=== PATIENT | female | born 1955 | race Caucasian/White ===

== ENCOUNTER → 2019-01-24 06:49 | Outpatient (CLI) | payer MEDICARE, SELFPAY ==
[2019-01-05 08:23] VITALS: BMI 37.3
--- NOTE | 2019-01-24 12:21 | STRESSREP_ITS ---
Stress Test Report Exercise myocardial perfusion stress test. 63-year-old lady with a history of hypertension, hyperlipidemia, coronary artery disease status post angioplasty and stenting of the right coronary artery and left anterior descending artery in 2007. Stress protocol: Resting EKG demonstrates sinus bradycardia with a rate of 58 bpm normal interv als are noted resting blood pressures 128/88 mmHg. Patient exercised according to regular Kwadwo protocol for total duration of 4 minutes and 12 seconds the maximum heart rate attained was 146 bpm which was 92% of maximum predicted heart rate the maximum workload was 6 metabolic equivalents. At rest there were no ST or T wave changes noted suggest ischemia peak exercise upsloping ST changes were noted with no meet the criteria for ischemia. No clinical angina was noted the test was terminated due to dyspnea and target heart rate being achieved. Resting blood pressure was 124/88 with a peak blood pressure 160/70 mmHg. Myocardial perfusion protocol. 12.0 mCi of technetium 99m sestamibi was injected at rest. The patient exercised according to regular Kwadwo protocol after 4 minutes and 12 seconds at peak exercise 36.0 mCi of technetium 99m sestamibi was injected stress images were obtained stress and rest images were reconstructed and compared in the short axis vertical long horizontal long axis. Gated images were also obtained per Perfusion SPECT analysis: Review of the stress images demonstrate reduction of perfusion in the basal to mid inferior wall on the stress and mild improvement in the mid inferior wall on the resting images suggesting a mild amount of mid inferior ischemia. The other barnett appear to be well perfused. No previous infarct is noted though a basal inferior infarct cannot be completely excluded. Gated SPECT analysis: The gated ejection fraction is noted to be 74%. Conclusion: Exercise myocardial perfusion stress test at a low to moderate workload with evidence of mid inferior ischemia noted.
== END ==
PROVIDERS: Family Provider Internal Medicine; PCP Internal Medicine; Referring Provider Internal Medicine Cardiovascular Disease; Visit Provider Internal Medicine Cardiovascular Disease
DX: I25.10 Atherosclerotic heart disease of native coronary artery without angina pectoris (principal); Z95.5 Presence of coronary angioplasty implant and graft
CPT/HCPCS: 78452; 93017; A9500; A4216

== ENCOUNTER 2019-01-31 07:28 | Day surgery (SDC) | payer MEDICARE, SELFPAY ==
[2019-01-05 08:23] VITALS: BMI 37.3
--- NOTE | 2019-01-25 11:10 | RAD_ITS ---
STUDY: X-RAY CHEST REASON FOR EXAM: Female, 63 years old. Pain. TECHNIQUE: PA and lateral views of the chest. COMPARISON: 05/12/2008. FINDINGS: The lungs are clear and expanded. There is no demonstrated pleural abnormality. Normal size heart. Normal mediastinum and frannie. Normal visualized pulmonary arteries. Normal visualized aortic arch and descending thoracic aorta. There are diffuse degenerative changes of the visualized thoracic spine. There is degenerative osteoarthritis of the bilateral shoulders. There is no demonstrated abnormality of the visualized soft tissue structures of the upper abdomen. RAD/Chest PA and Lateral IMPRESSION: No acute cardiopulmonary disease. Electronically Signed: Lizette Wills MD at 1:26 EST , Service support ,
[2019-01-28 07:45] VITALS: BMI 37.3
[2019-01-31] VITALS (22 sets, daily range): BP systolic 121–182; BP diastolic 47–129; PULSE 48–75; RESP 12–21; TEMP 36.4–37.2; O2SAT 96–100; BMI 36.7; BMI 36.2
--- NOTE | 2019-01-31 10:09 | CL.D_ITS ---
Patient Name: CHRISTIN ROB Study Date: 01/31/2019 Performing: Thomas Washington MD Ht: 61.81 inches 157 cm : 1955 Wt: 205.03 lbs 93 kg Age: 63 Gender: female BSA: 1.93 PROCEDURE(S) PERFORMED TS84-BPC/COR/LV CLINICAL PROFILE AND INDICATIONS Indications: Suspected CAD Heart Failure: None Stress/Imaging Date: 01/24/2019Stress Test with SPECT MPI: Positive Intermediate Risk CONCLUSIONS Previously placed stent in the left anterior descending arteries patent, left circumflex artery mild stenosis, previously placed stents in the right coronary artery demonstrates at least moderate in-karina nt stenosis. In light of the fact that the patient had abnormal stress test with inferior ischemia a t a low to moderate workload it is felt that this may be an underestimate of the stenosis and will re commend PCI RECOMMENDATIONS Referred for immediate PCI DESCRIPTION OF PROCEDURE The patient arrived to the procedure lab. The risks and benefits of the procedure as well as a full d escription of our services here and current unavailability of surgical backup were fully explained to the patient and/or their significant other prior to the catheterization. The Timeout was completed, verifying the correct patient and procedure. The patient's procedural site was prepped and draped in the usual fashion. Local anesthetic was given subcutaneously to right radial region with Lidocaine 2% . Using a modified Seldinger technique, arterial access was obtained via the right radial artery, a 6 Fr sheath was inserted. Right Coronary Artery selective angiography was then performed in multiple v iews using a 5 Fr. 3DRC (Kaden) catheter. Left Coronary Artery selective angiography was performed in multiple views using a 5 Fr. JL4 catheter. CORONARY ANGIOGRAPHY DOMINANCE: Right Dominant LEFT HEART ASSESSMENT Left Ventricular Ejection Fraction: by LV Gram 55 % Diaphragmatic Akinesis Normal Left Ventricular systolic function LEFT MAIN: Angiographically normal LEFT ANTERIOR DESCENDING ARTERY: Previously placed stent is patent CIRCUMFLEX ARTERY: Mild luminal irregularities less than 30% RAMUS: Mild luminal irregularities less than 30% RIGHT CORONARY ARTERY: PROX RCA: Instent restenosis 70 % MID RCA: Mild luminal irregularities less than 30%, Previously placed stent has an instent 60 % reste nosis COMPLICATIONS PROCEDURE MEDICATIONS Versed 1 mg IV Fentanyl 50 mcg IV Oxygen: 2 L/min via nasal cannula Baby Aspirin (81mg) 1 Tabs PO @ 01/31/2019 08:09:31 SUMMARY OF HEMODYNAMIC DATA Time AIR REST ECG 07:50:49 AO 97/61 (77) SA 09:49:35 LV 131/-6, -1 09:55:10 LV 131/-7, 0 09:55:17 Signed By Thomas Washington MD On 01/31/2019 10:08:40 Thomas Washington MD
--- NOTE | 2019-01-31 11:15 | NURSING ---
01/31/19 1115 Patient arrived to ICU, edema present in right arm. Patient c/o tenderness and tightness feeling. Per optical laboratory technician staff, Dr. Boyce visualized the patients arm prior to ICU arrival. Right forearm measured in able to monitor for anymore swelling. No bruises noted. Brachial and radial pulses palpable. 01/31/19 1215- Patients right arm reassessed every 5 minutes with wrist check, remains unchanged. 01/31/19 1320- Dr. Boyce notified that right arm remains unchanged, swelling noted, no bruises and pulses palpable. Patient continues to c/o tenderness. No further orders given.
--- NOTE | 2019-01-31 11:15 | EKG12_ITS ---
Test Reason : Blood Pressure : / mmHG Vent. Rate : 047 BPM Atrial Rate : 047 BPM P-R Int : 178 ms QRS Dur : 072 ms QT Int : 458 ms P-R-T Axes : 049 015 028 degrees QTc Int : 405 ms Marked sinus bradycardia Septal infarct (cited on or before 19-AUG-2004) Abnormal ECG When compared with ECG of 17-FEB-2008 13:56, Criteria for Inferior infarct are no longer Present Nonspecific T wave abnormality now evident in Lateral leads Confirmed by EARLENE DODSON, THOMAS ([id number]), assignment desk editor ROLY QUIÑONES ([id number]) on 02/01/2019 9:50:47 AM Referred By: Thoams Henao Confirmed By:THOMAS HENAO MD
[2019-01-31] MEDS: 0.9% Normal Saline 1,000 ML 100 ML IV (11:57)
--- NOTE | 2019-01-31 13:20 | CRPH1.INSTRU ---
General Education CAD and cardiac anatomy and function:: Patient communicates acknowledgment Explanation of diagnoses and procedures:: Patient communicates acknowledgment Sign/Symptoms of DE:: Patient communicates acknowledgment Antiplatelet therapy: Patient communicates acknowledgment Proper use of NTG-SL: Patient communicates acknowledgment Emergency procedures and activation of EMS: Patient communicates acknowledgment Compliance of all prescribed medications: Patient communicates acknowledgment Smoking Patient Nicotine/Smoking Risk Factors Are:: Cigarettes Recommendations Include:: Smoking cessation strategies/Smoking packet, Participation in a smoking cessation program Nicotine/Smoking Response Code:: Patient communicates acknowledgment Dyslipidemia Patient Dyslipidemia Risk Factors Are:: Total Cholesterol, Triglycerides, HDL, LDL Recommendations Include:: Lipid profile not available Dyslipidemia Response Code:: Patient communicates acknowledgment Overweight/Obesity Patient Overweight/Obesity Risk Factors Are:: Obesity - > or = 30 Recommendations Include:: Weight loss of 5-10%, Reduced calorie diet, Exercise 5-7 times/week Overweight/Obesity:: Patient communicates acknowledgment Hypertension Recommendations Include:: Maintain BP <130/85, BP <130/80 if diabetic, DASH dietary guidelines, Decrease/maintain normal body weight, Moderation of ETOH Hypertension:: Patient communicates acknowledgment Heart Disease Patient Heart Disease Risk Factors Are:: Previous cardiac event - Previous stents Recommendations Include:: Educated family members of their risk, Educated family members of importance of prevention of heart disease Heart Disease Response Code:: Patient communicates acknowledgment Diabetes Patient Diabetes Risk Factors Are:: Elevated blood sugars Recommendations Include:: Maintain fasting blood sugars 70-110 md/dL, Maintain HgbA1c of 6% or less, Monitor blood sugar as prescribed, Diabetic dietary guidelines, Decrease/maintain body weight Diabetes:: Patient communicates acknowledgment Metabolic Syndrome Patient Metabolic Syndrome Risk Factors Are [3 of 5]:: Waist circumference > 35 [female] or 40 [male], Hypertension Recommendations Include:: Reinforce compliance to risk factor modifications, Patient is diabetic, Encouraged follow-up with Primary Care Physician Metabolic Syndrome Response Code:: Patient communicates acknowledgment Sedentary Patient Sedentary Risk Factors Are:: Lack of regular exercise Recommendations Include:: Aerobic exercise 5-7 times/week for 20-30 minutes continuously, Benefits of regular exercise, Discussed home walking program, Monitored Outpatient Cardiac Rehab Sedentary Response Code:: Patient communicates acknowledgment Stress Recommendations Include:: Identification of stressors, and assessment of coping skills, Stress management techniques Stress Response Code:: Patient communicates acknowledgment
--- NOTE | 2019-01-31 13:25 | CRPHASE1 ---
Patient Communication Former Patient:: Phase II - 2007 PHII Cardiac Rehab Discussed with Patient:: Yes Guide to Cardiac Rehab Given to Patient:: Yes Cardiac Rehab Facility Choice List Given to Patient:: Yes Choice Program [facility] PHII:: Communication Given to CR, Refer to [facility] Intermediate Manager:: Rudy Boyce Phase II Cardiac Rehab:: Yes Sessions:: 36 sessions - 3 days/wk, 12 weeks Risk Factors/Lifestyle Smoking Status: Current every day smoker Hx Hypertension: Yes Hx Diabetes Mellitus Type 2: Yes Hx Dyslipidemia: Yes Hx Obesity: Yes Height: 5 ft 3 in Weight:: 92.87 kg BMI: 36.2 Post-Menopausal: Yes Stress: Long-standing, Home/Family Family History: Family History (Last Reviewed 01/05/19 @ 11:33 by Thomas Washington MD) Father Cancer Past Cardiac Illness: Ejection Fraction - 55%, Coronary Artery Disease, Previous PCI w/Stent Phase I Education Given On:: [place], Nutrition, Antiplatelet medication, CHF, Smoking cessation, Diabetes - Type II Issues Affecting Care:: None Knowledge of Condition:: Yes Learning Preferences: Verbal Hospital Course Presenting Symptoms:: Abnormal Stress Test Date/LVF/EF:: 01/31/19 - EF 55% Intervention:: PCI/Stent Medical/Surgical History CAD:: Yes Asthma:: Yes Diabetes Type II:: Yes Hypertension:: Yes Dyslipidemia:: Yes GERD:: Yes Depression:: Yes Anxiety:: Yes PTCA:: Yes Discharge/Home/Social Eval Discharge Disposition: Home Marital Status: Patient Lives With:: Raising 11 yr old grandson Cardiac Rehabilitation Info Cardiac Rehabilitation Program Information: Cardiac Rehabilitation is important for patients like you who are recovering from a heart problem. Cardiac rehabilitation programs are recognized as integral to the continued care of the patient with coronary heart disease. The cardiac rehabilitation program is designed to optimize a patient's physical, psychological, and social functioning. Health health care recruiter work in cardiac rehabilitation programs and assist you with getting the treatments you need to get stronger and healthier - like exercise, healthy eating habits, and medications. Cardiac rehabilitation has been show to help people with heart problems live longer and have better life enjoyment than people who do not go to cardiac rehabilitation. Please contact the Cardiac Rehabilitation Program at [facility] at in two weeks if you have not heard from them.
--- NOTE | 2019-01-31 14:39 | CASEMGMT ---
Addendum entered by Yolette Alaniz 01/31/19 16:05: Went to patient bedside, introduced self and role. Provided a Brilinta card. Patient plan for DC Home with and granddaughter who can help if needed. PEGGY Montoya Original Note: Case Management Progress Note: In [facility] Tertiary Hospitals: [facility], [facility], [facility], , [facility], [facility], [facility]. PEGGY Montoya
--- NOTE | 2019-01-31 16:40 | NURSING ---
Dr. Boyce came to visit patient and assess the right arm. MD confirmed a hematoma is present, however stable. Continue to monitor.
[2019-01-31 17:45] LABS: Bedside Glucose 101 mg/dL (70-110)
[2019-01-31] MEDS: Atorvastatin Calcium 80 MG Tablet PO (21:36)
[2019-01-31] MEDS: TICAGRELOR 90 MG TABLET PO (21:36)
[2019-01-31] MEDS: Montelukast 10 MG Tablet PO (21:36)
[2019-02-01] VITALS (16 sets, daily range): BP systolic 120–152; BP diastolic 50–81; PULSE 56–80; RESP 14–25; TEMP 36.7–37.3; O2SAT 96–100
[2019-02-01 05:52] LABS: Hematocrit 36.7 % (37-47); Hemoglobin 12.3 g/dL (12.0-15.0); Mean Corp Hgb Conc 33.5 g/dL (32-36); Mean Corpuscular Hgb 29.2 pg (27.0-32.0); Mean Corpuscular Volume 87.2 fL (81-99); Mean Platelet Vol. 9.4 fl (6.2-12.0); Platelet Count 187 K/mm3 (150-450); RBC Distribution Width CV 13.2 % (11.6-14.6); RBC Distribution Width SD 40.7 fl (35.1-43.9); Red Blood Count 4.21 M/mm3 (4.2-5.4); White Blood Count 8.7 K/mm3 (4.4-11.0)
[2019-02-01 06:10] LABS: ALB/GLOB Ratio 0.9 RATIO (0.9-2.4); AST(SGOT) 15 U/L (15-37); Alanine Aminotransfer ALT/SGPT 18 U/L (13-56); Albumin, Serum 3.2 g/dL (3.2-5.0); Alkaline Phosphatase 86 U/L (45-117); Anion Gap 6 (5-15); BUN 14 mg/dL (7-18); BUN/Creat Ratio 10.4 RATIO (10-20); Calcium,Total 8.7 mg/dL (8.5-10.1); Chloride 111 mmol/L (98-107); Creatinine, Serum 1.34 mg/dL (0.55-1.02); EST Glomerular Filtration Rate 42 mL/min (>60); Est Glom Filt Rate - Afr Amer 51 mL/min (>60); Estimated Creatinine Clearance 35.55 ml/min; Globulin 3.5 g/dL (2.2-4.2); Glucose 166 mg/dL (74-106); Potassium 3.5 mmol/L (3.5-5.1); Protein, Total 6.7 g/dL (6.4-8.2); Sodium Level 140 mmol/L (136-145)
[2019-02-01] MEDS: Aspirin 81 MG TAB.CHEW PO (07:56)
[2019-02-01] MEDS: Pantoprazole Sodium 20 MG Tablet PO (07:56)
[2019-02-01] MEDS: Loratadine 10 MG Tablet PO (07:57)
[2019-02-01] MEDS: Atenolol 50 MG Tablet PO (07:57)
[2019-02-01] MEDS: Glimepiride 4 MG Tablet PO (07:57)
[2019-02-01] MEDS: Lisinopril 20 MG Tablet PO (07:57)
[2019-02-01] MEDS: TICAGRELOR 90 MG TABLET PO (07:58)
--- NOTE | 2019-02-01 08:07 | PCM.PN.CARD ---
Subjectve: Patient seen and evaluated and appears to be doing well Objective: Vital Signs Temp Pulse Resp BP Pulse Ox 99.1 F 63 18 138/63 H 96 02/01/19 06:00 02/01/19 07:32 02/01/19 07:32 02/01/19 07:32 02/01/19 07:32 Oxygen Delivery Method Room Air Weight: 202 lb 6.15 oz Body Mass Index (BMI) 36.7 Intake and Output for Last 24 Hours 01/30/19 01/31/19 02/01/19 23:59 23:59 23:59 Intake Total 525 / 525 Balance 525 / 525 General: Awake, Alert, Oriented x 3 HEENT: PERRL, EOMI, Sclera Non Icteric Neck: Supple, Good ROM, No Lymph Node Enlargement Lungs: Clear to auscultation Cardiovascular: Regular Rhythm, Normal S1, Normal S2, No Murmurs, No Rubs, No Gallops Vascular: No Carotid Bruits, Normal Femoral Pulses, Normal Radial Pulses, Normal Dorsalis Pedal Pulse, Normal Posterior Tibial Pulses Abdomen: Bowel Sounds Present, Soft, Non Tender, No HSM, No Organomegaly Extremities: No Cyanosis, No Clubbing, No edema Musculoskeletal: No Erythema Skin: No Rashes Lymphatic: No Lymph Node Enlargement Neurological: No Focal Motor or Sensory Deficit Psych/Mental Status: Appropriate 02/01/19 05:30: WBC 8.7, RBC 4.21, Hgb 12.3, Hct 36.7 L, MCV 87.2, MCH 29.2, MCHC 33.5, Plt Count 187, MPV 9.4 02/01/19 05:30: Sodium 140, Potassium 3.5, Chloride 111 H, Carbon Dioxide 23.0, Anion Gap 6, BUN 14, Creatinine 1.34 H, Est GFR (MDRD) Af Amer 51 L, Est GFR (MDRD) Non-Af 42 L, BUN/Creatinine Ratio 10.4, Glucose 166 H, Calcium 8.7, Total Bilirubin 0.70 Rhythm: EKG: ECHO: Stress Test: Cardiac Cath: PCI: CT Surgery: Holter monitor: EPS: PPM: CXR: Chest CT Scan: Medical Necessity - Tobacco Use Smoking Status: Current every day smoker Tobacco Use: Cigarettes Assessment/Plan 1. Status post PCI of the right coronary artery. Patient appears to doing well EKG is without any abnormality and radial site looks good. The patient to be discharged for outpatient follow-up and cardiac rehabilitation. Continue aspirin Continue ticagrelor Continue atenolol Continue statin Continue lisinopril.
--- NOTE | 2019-02-01 09:53 | CASEMGMT ---
RN CM Note: Intro role of CM to patient. Brilinta savings card reviewed. Pt would like medications filled @ [facility]. Card sent to [facility]. No dc needs identified. Vita HICKSN RN ACM
--- NOTE | 2019-02-01 10:00 | EKG12_ITS ---
Test Reason : AM EKG Blood Pressure : / mmHG Vent. Rate : 075 BPM Atrial Rate : 075 BPM P-R Int : 168 ms QRS Dur : 080 ms QT Int : 464 ms P-R-T Axes : 046 009 029 degrees QTc Int : 518 ms Normal sinus rhythm Septal infarct , age undetermined Prolonged QT Abnormal ECG When compared with ECG of 31-JAN-2019 11:20, MANUAL COMPARISON REQUIRED, DATA IS UNCONFIRMED Confirmed by DAMON DODSON, NAHEED ([id number]), multimedia editor CARLY KRUEGER ([id number]) on 02/04/2019 10:40:40 AM Referred By: Thomas Washington Confirmed By:VICTORINO JOSE MD
--- NOTE | 2019-02-01 11:10 | PCM.DC.CCA ---
Discharge Diet: Low fat/ Low Cholesterol Discharge Activity: Return to Normal Activity Lifting Restrictions: 10 pounds and also avoid any pushing or pulling for 3 days after your test. Call your doctor if your incision/area has: Continuous Slow Oozing, Sudden Increased Bleeding, Increased Pain/ Swelling, Increased Redness, Foul Smelling Discharge, Swelling at the incision site Call your doctor if you observe: Fever of 101 or Higher, Shortness of breath, Chest pain Remove Dressing in (days):: 1 Cleanse incision/area with: Soap & Water Additional Dressing/Incision Instructions:: Keep the dressing (bandage) on until the next morning. You may then shower, but do not take a tub bath for 5 days after your test. Where your arm will be soaking on water. It is normal to have some tenderness and discomfort at the puncture site. Sometimes bruising also occurs. However, if pain, numbness, or coldness occurs below the puncture site (in your leg, toes, arms or fingers) call your doctor at once. You may have a small, marble sized knot at the puncture site. This is normal. Do not rub it. It will go away in 4-6 weeks. Bleeding can occur from the area where the puncture was done. Blood may spurt or drip from the site. If blood spurts, apply pressure right away to stop bleeding and call 911. Although rare, bleeding into the tissue (hematoma) can also occur. If this happens, a large, firm area goose egg under the skin will appear. If any of these occur, lie down as flat as you can and have someone apply firm pressure to the cath site with a gauze pad or a clean washcloth for 10-15 minutes. Call 911 or go to the Emergency Department. Additional Instructions: I sent your Brilinta downstairs to be refilled. Please do no discontinue this for any reason. As discussed, call the number on the Brilinta card to see if you can have patient assistance with this medication. Let us know if you can not, when you have your follow up appt we can talk about switching medication. Allergies/Adverse Reactions: Allergies No Known Allergies Allergy (Verified 01/28/19 07:47) Medications to take at Discharge Aspirin 81 mg PO DAILY 04/14/16 Atenolol [Tenormin (beta jerman)] 50 mg PO QHS 04/14/16 albuterol sulfate 2.5 mg INHALATION Q4H PRN 12/02/18 alprazolam 0.25 mg tablet 0.25 mg PO DAILY PRN 12/02/18 cetirizine 10 mg tablet 10 mg PO DAILY tab 12/02/18 glimepiride 4 mg tablet 4 mg PO QAM 12/02/18 lisinopril 20 mg tablet 20 mg PO QHS 12/02/18 metformin 500 mg tablet,extended release 24 hr 1,000 mg PO QAM tab 12/02/18 metformin 500 mg tablet,extended release 24 hr 1,000 mg PO QPM 12/02/18 montelukast 10 mg tablet 10 mg PO QPM 12/02/18 nitroglycerin 0.4 mg sublingual tablet 0.4 mg SUBLINGUAL Q5-15M PRN 12/02/18 rosuvastatin 40 mg tablet 40 mg PO DAILY 12/02/18 omeprazole 20 mg capsule,delayed release 20 mg PO DAILY 01/05/19 ticagrelor 90 mg tablet 90 mg PO BID #60 tab 02/01/19 Orders to be completed after discharge: Phase II, Outpatient Cardiac Rehab Location: None Selected Primary Care Physician: Clotilde Dias MD [Primary Care Provider] - Test Results: Test results from this visit will be discussed in further detail at your follow-up appointment, if applicable. Please Follow Up With: Paty Figueroa PA When: 02/22 at 1430 Cardiac Rehabilitation Info Cardiac Rehabilitation Program Information: Cardiac Rehabilitation is important for patients like you who are recovering from a heart problem. Cardiac rehabilitation programs are recognized as integral to the continued care of the patient with coronary heart disease. The cardiac rehabilitation program is designed to optimize a patient's physical, psychological, and social functioning. Health field care advocate work in cardiac rehabilitation programs and assist you with getting the treatments you need to get stronger and healthier - like exercise, healthy eating habits, and medications. Cardiac rehabilitation has been show to help people with heart problems live longer and have better life enjoyment than people who do not go to cardiac rehabilitation. Please contact the Cardiac Rehabilitation Program at [facility] at in two weeks if you have not heard from them.
--- NOTE | 2019-02-01 12:09 | NURSING ---
discharged with instructions per wheelchair in care of
--- NOTE | 2019-02-02 04:31 | CL.I_ITS ---
Patient Name: CHRISTIN ROB Study Date: 01/31/2019 Performing: Jm Boyce MD Ht: 61.81 inches 157 cm : 1955 Wt: 205.03 lbs 93 kg Age: 63 Gender: female BSA: 1.93 PROCEDURE(S) PERFORMED [id number] W OR WO PTCA, SINGLE CORONARY ARTERY CLINICAL PROFILE AND CO-MORBIDITIES Indications: Suspected CAD Heart Failure: None Stress/Imaging Date: 01/24/2019 Stress Test with SPECT MPI: Positive Intermediate Risk CONCLUSIONS Successful KAITLYNN to ISR of mid RCA RECOMMENDATIONS ASA Indefinitley Bryeimita for at least 12 months Follow up with Dr. Washington DESCRIPTION OF PROCEDURE The patient arrived to the procedure lab. The risks and benefits of the procedure as well as a full d escription of our services here and current unavailability of surgical backup were fully explained to the patient and/or their significant other prior to the catheterization. The Timeout was completed, verifying the correct patient and procedure. The patient's procedural site was prepped and draped in the usual fashion. Local anesthetic was given subcutaneously to right radial region with Lidocaine 2% Using a modified Seldinger technique,arterial access was obtained via the right radial artery, a 6Fr sheath was inserted. Right Coronary Artery selective angiography was then performed in multiple view s using a 5 Fr. 3DRC (Kaden) catheter. Left Coronary Artery selective angiography was performed in multiple views using a 5 Fr. JL4 catheter. Left Ventriculography was performed in [place] projection usi ng a 5 Fr. Pigtail catheter. LV to AO pullback pressures were then recorded.The images were reviewed and options discussed. A decision was then made to proceed with an Intervention, IVUS o r other adjunct procedure. jr 4 Guide catheter was inserted and engaged into the RCA. bmw Guide wire was advanced to the RCA . 1.5 x 12 Balloon catheter was advanced across lesion in RV marginal off the right coronary, ostial . PTCA balloon inflated at 8 atms for 29 secs. PTCA balloon inflated at 8 atms for 7 secs. PTCA ballo on inflated at 12 atms for 20 secs. PTCA balloon inflated at 14 atms for 5 secs. PTCA balloon inflate d at 14 atms for 11 secs. PTCA balloon inflated at 14 atms for 11 secs. emerge 2.5 x [address] was advanced across lesion in the right coronary, mid. PTCA balloon inflated at 8 atms for 9 secs . PTCA balloon inflated at 10 atms for 10 secs. PTCA balloon inflated at 8 atms for 9 secs. PTCA ball oon inflated at 12 atms for 21 secs. PTCA balloon inflated at 14 atms for 39 secs. PTCA balloon infla jackie at 12 atms for 12 secs. Angiogram performed post balloon dilatation. synergy 2.5 x 24 Drug Elutin g stent was advanced across the lesion in the right coronary, mid. Angiogram performed post stent deployment. synergy 2.5 x 28 Drug Eluting stent was advanced across the lesion in the righ t coronary, mid. Angiogram performed post stent deployment. nc emerge 2.5 x 15 Balloon catheter was i nserted post stent. Angiogram performed post balloon dilatation. The arterial sheath was pulled and a TR Band was applied for hemostasis INTERVENTION INFORMATION LESION SITE: RV Marginal (Ostial) Lesion Complexity: High/C, chronic total occlusion: No, lesion at bifurcation: Yes, lesion length: 4 mm, thrombus present: No, culprit lesion: Yes, Previously treated lesion: No Pre Stenosis: 90 % Pre intervention DOT flow: 3 PROCEDURE: Balloon Angioplasty Post Stenosis: 70 % Post intervention DOT flow: 3 Lesion Devices: Baker .014 BMW Silver Straight 190cm Cardinal 6 Fr JR4 100cm Guide Catheter Medtronic SC EUPHORA RX 1.5x12 BALLOON LESION SITE: RCA (Mid) Lesion Complexity: High/C, chronic total occlusion: No, lesion at bifurcation: Yes, thrombus present: No, lesion length: 40 mm, culprit lesion: Yes, Previously treated lesion: Yes, In-stent restenosis: Yes Pre Stenosis: 80 % Pre intervention DOT flow: 3 PROCEDURE: Drug Eluting Stent with pre and post dilatation Post Stenosis: 0 % Post intervention DOT flow: 3 Lesion Devices: Baker .014 BMW Silver Straight 190cm Cardinal 6 Fr JR4 100cm Guide Catheter Medtronic SC EUPHORA RX 1.5x12 BALLOON Burt [employer] Synergy MR KAITLYNN 2.50x24 Burt Sci Synergy MR KAITLYNN 2.50x28 Burt Sci NC EMERGE MR 2.50x15 BALLOON COMPLICATIONS No Complications PROCEDURE MEDICATIONS Versed 1 mg IV Fentanyl 50 mcg IV Oxygen: 2 L/min via nasal cannula Baby Aspirin (81mg) 1 Tabs PO 01/31/2019 08:09:31 Brilinta 180 mg PO @ 01/31/2019 11:01:29 Heparin 5000 unit(s) IV 01/31/2019 10:10:55 SUMMARY OF HEMODYNAMIC DATA Time AIR REST ECG 07:50:49 AO 97/61 (77) SA 09:49:35 LV 131/-6, -1 09:55:10 LV 131/-7, 0 09:55:17 Signed By Jm Boyce MD On 02/02/2019 04:31:12 Jm Boyce MD
== END 2019-02-01 11:30 | disposition home or self-care (01) ==
LOC: CLSP 07:28 → ICU 11:27
PROVIDERS: Specialist; Family Provider Internal Medicine; PCP Internal Medicine; Referring Provider Internal Medicine Cardiovascular Disease; Visit Provider Internal Medicine Cardiovascular Disease
DX: I25.10 Atherosclerotic heart disease of native coronary artery without angina pectoris (principal); I10 Essential (primary) hypertension; E78.5 Hyperlipidemia, unspecified; E11.9 Type 2 diabetes mellitus without complications; I71.4 Abdominal aortic aneurysm, without rupture; F41.9 Anxiety disorder, unspecified; F32.9 Major depressive disorder, single episode, unspecified; J45.909 Unspecified asthma, uncomplicated; K21.9 Gastro-esophageal reflux disease without esophagitis; Z95.5 Presence of coronary angioplasty implant and graft; Z79.82 Long term (current) use of aspirin; Z79.84 Long term (current) use of oral hypoglycemic drugs; Z79.899 Other long term (current) drug therapy; F17.210 Nicotine dependence, cigarettes, uncomplicated
CPT/HCPCS: 71046; 80053; 82962; 85027; 92928; 93005; 93458; 99152; 99153; J7030; J7040; Q9967; C1725; C1769; C1874; C1887; C1894; C9600; J1327

== ENCOUNTER → 2019-02-10 08:02 | Outpatient (CLI) | payer MEDICARE, SELFPAY ==
[2019-01-31 11:24] VITALS: BMI 36.7
[2019-01-31 13:34] VITALS: BMI 36.2
--- NOTE | 2019-02-10 08:32 | PCM.CR.ITP ---
General Information - General Information Admitting Diagnosis: PCI WITH STENT - Education/Goals Barriers to Learning: None Individual Counseling: Initial Assessment: Nicotine/Smoking, Abnormal Cholesterol Levels, High Blood Pressure, Overweight/Obesity, Diabetes, Hypertension, Low HDL <40/Males or <50/Females, Sedentary Lifestyle, Stress Cardiac Rehabilitation Goals: 1. Maintain the individual as the primary focus of care. 2. To improve the patient's quality of life. 3. Identification of cardiac risk factors and provide cardiac risk factor management. 4. Enhance the psychosocial status of the patient. 5. Reconditioning enough to allow the patient to resume customary activities. 6. Control symptoms of cardiac disease Scale for measuring improvement of personal goals: Enter appropriate number in Comments. 2 = Unchanged. 3 = Slightly Better. 4 = Moderate Improvement. 5 = Met my Goal Personal Goals: Initial Assessment: Quit smoking (participate in smoking cessation, Improve energy level, Improve muscle strength and endurance, Improve diet and eating habits (eat healthier) - REFERRAL FOR DIAB CLINIC REQUESTED, Control risk factors (learn risk factor modification) Exercise - Initial Assessment - Visit Date of Eval: 02/10/19 - Stages of Change Stages of Change:: Action - Physician Prescribed Exercise Modalities: Treadmill, Biodyne, Rower, Airdyne, NuStep, SciFit Frequency (days/week): 3x/week for 12 weeks [36 sessions] Intensity: 60-80% age predicted maximum heart rate reserve Target Heart Rate:: 100 - Hypertension Do any of the following apply?: Yes, Medication - ATENONOL, LISINOPRIL Resting Blood Pressure:: 100/72 - Intervention Home Exercise/Activity Goal:: Sitting Time <3 hrs/day - Education Goals:: Warm-up, RPE PRASHANTH Scale, S/S, Safe Exercise, Self-Monitoring - Exercise Program Goals Exercise Program Goals: Aerobic Activity >30 min Nutrition - Initial Assessment - Program Goals Nutrition Program Goals: LDL <70. Total Cholesterol <200. HDL >45. Triglycerides <150. HgbA1C <7%. BMI <25 - Stages of Change Stages of Change:: Action - Lipids Total Cholesterol (mg/dL) Goal = less than 200 mg/dL: 112 HDL Cholesterol (mg/dL) Goal = less than 45 mg/dL: 36 LDL Cholesterol (mg/dL) Goal = less than 70 mg/dL: 27 Triglycerides (mg/dL) Goal = less than 150 mg/dL: 245 Lipid Medication: CRESTOR - Diabetes Diabetes:: Yes Hgb A1C: 10.9 Insulin: No Do you monitor your blood sugar at home?: Yes - DAILY - Weight Management Height: 5 ft 1 in Weight:: 205 lb - Intervention Referral to dietitian:: Yes - REFERRAL REQUESTED Referral to Diabetic Clinic:: Yes - REFERRAL REQUESTED Will attend diet classes:: Yes - CR CLASSES - Education Gave educational materials for:: Signs & symptoms of hypoglycemia, Signs & symptoms of hyperglycemia, Relate diabetes to coronary artery disease, Healthy eating Tobacco - Initial Assessment - Program Goals Tobacco Program Goals: Complete smoking cessation. Attend education classes. Improve Knowledge Test score - Stage of Change Stages of Change:: Action - Learning Barriers Learning Barriers: Ready to Learn - Family Support Do you have family support?: Yes - - Tobacco Use Tobacco Use: Cigarettes How many cigarettes do you smoke per day?: 15 Years Smokin Do you use smokeless tobacco?: No - Intervention Smoking Cessation Referral:: Yes - REFERRAL REQUESTED Individual Education/Counseling:: Yes - SMOKING SESSATION REFERRAL AND CR CLASSES Education Schedule Given:: Yes - CR CLASSES Psychosocial - Initial Assess - Target Goals Target Goals: Assess presence or absence of depression. Using a valid screening tool, maximizes coping skills. Positive support system - Stages of Change Stages of Change:: Action - Psychosocial Test Tool Used:: HANDS Depression Questionnaire - Intervention PS - Interventions: Yes Referral to Physician - [facility] DIABETIC COUNCELING AND WHY WT PROGRAM, Yes Attend Stress Management Classes - CR CLASSES, Yes Uses Stress Management Skills - CR CLASSES, No Referral to Mental Health, No Referral to [facility] Case Management - Education Gave educational materials for:: Coping techniques, Signs & symptoms of depression, Stress management, Relaxation techniques - PT INFORMED OF THE CR EDUCATION MATERIALS AVAIL ON-LINE ON [facility] WEBSITE - Patient/Program Goal Preventative Medication(s):: Aspirin, ALY inhibitor, Clopidogrel - PT WANT TO TALK TO SOIL ANALYST ABOUT GOING ON PLAVIX INSTEAD OF BRILINTA, COST ISSUE, Beta jerman, Statin/lipid - Assistive Devices Assistive Devices:: None Fall Risk Assessed:: No Patient Health Questionnaire Initial Assessment 1. Little interest or pleasure in doing things: More than half the days 2. Feeling down, depressed, or hopeless: Not at all 3. Trouble falling or staying asleep, or sleeping too much: Several days 4. Feeling tired or having little energy: More than half the days 5. Poor appetite or overeating: Several days 6. Feeling bad about yourself -- or that you are a failure or have let yourself or your family down: Several days 7. Trouble concentrating on things, such as reading the newspaper or watching television: Not at all 8. Moving or speaking so slowly that other people could have noticed. Or the opposite - being so fidgety or restless that you have been moving around a lot more than usual: Several days 9. Thoughts that you would be better off , or of hurting yourself in some way: Not at all How difficult have these problems made it for you to do your work, take care of things at home, or get along with other people?: Not difficult at all Total Score: 8 ARLIN-Q SV Test - Statements CAD is a disease of the arteries in the heart: False Examples of risk factors for heart disease: True Angina is chest pain or discomfort: True The benefits of resistance training include: True Eating more meat and dairy products: False Anti-platelet medications such as aspirin are important: True The only effective way to manage stress: False An exercise warm-up slowly increases heart rate: True Prepared, processed foods usually have high sodium: True Depression is common after a heart attack: True The statin medications lower cholesterol: True To control blood pressure, lower the amount of sodium: True If someone gets chest discomfort during walking: False Transfats are partially hydrogenated vegetable oils: True Sleep apnea that is not treated increases the risk: False To control cholesterol, one should become a vegetarian: False Someone knows if he/she is exercising at the right level: True Diabetes cannot be prevented with exercise & health eating: False Stress is a large risk for heart attack: True A diet that can help lower blood pressure is rich in: True - Total Score Total Correct Responses: 20 Self-Efficacy Initial Assessment We would like to know how confident you are in doing certain activities. Please select your confidence level for:: Select your confidence level for the following using the scale 1-10 where 1 is not at all confident and 10 is totally confident. Your score is the average of all 6 responses. Fatigue: How confident are you that you can keep the fatigue caused by your disease from interfering with the things you want to do? Select Number: 7 Physical Discomfort or Pain: How confident are you that you can keep the physical discomfort or pain of your disease from interfering with the things you want to do? Select Number: 6 Emotional Distress: How confident are you that you can keep the emotional distress caused by your disease from interfering with the things you want to do? Select Number: 6 Other Symptoms or Health Problems: How confident are you that you can keep other symptoms or health problems from interfering with the things you want to do? Select Number: 8 Different Tasks and Activities: How confident are you that you can do the different tasks and activities needed to manage your health condition so as to reduce your need to see a doctor? Select Number: 8 Medication: How confident are you that you can do things other than just taking medication to reduce how much your illness affects your everyday life? Select Number: 8 Total Score:: 7 Nutrition Survey - Nutrition Survey Instructions Scoring Instructions: Scoring is as follows: Yes = 1 points. No = 0 point. Patient score that is >/=12 is considered to be at potential nutritional risk and could benefit from a referral to a registered dietitian. - Nutrition Survey Initial Have you lost >10 lbs over the past 2 months without trying?: No Are you following a special diet at home for diabetes, low fat, or low salt?: No Are you interested in meeting with a dietitian for help understanding your diet?: Yes Do you eat less than 3 meals a day?: Yes Do you eat fatty meats (doan, sausage, ribs, etc), fried foods, desserts, large amounts of salad dressings, margarine, butter, or cheese most days?: Yes Do you have food allergies? [Enter types in comment field]: No Do you eat in restaurants more than 3 times a week?: No Do you season food with salt, seasoning salt, or garlic salt?: Yes Do you used canned, boxed, frozen meals, or soups, seasoning packets?: Yes Total Score:: 5
--- NOTE | 2019-02-10 08:32 | PCM.CR.HP2 ---
CR - History & Physical - General Arrival date:: 02/10/19 Arrival time:: 08:00 Date of Referral:: 01/31/19 Date of CR Evaluation:: 02/10/19 Referring Physician: DR. HENAO Primary Diagnosis: PCI WITH STENT - History of Present Cardiac Event Onset Date: Enter Onset Date of cardiac illnesses in Comment field below Current stable Angina Pectoris:: No Acute Myocardial Infarction within 12 months:: No Coronary Artery Bypass Graft:: No Heart valve replacement or repair:: No PTCA or coronary stenting:: Yes - X4 IN 2008 Heart or Heart-Lung Transplant:: No Heart Failure EF <35%:: No Type of Symptoms:: NONE THIS OCCURANCE. IN 2008 HAD ANGINE AND HTN Interventions with present event:: PCI WITH STENT Were there any complications?: NONE - Medications Home Medications: Ambulatory Orders Medication Instructions Recorded Aspirin 81 mg PO DAILY 04/14/16 Atenolol [Tenormin (beta jerman)] 50 mg PO QHS 04/14/16 albuterol sulfate 2.5 mg INHALATION Q4H PRN 12/02/18 alprazolam 0.25 mg tablet 0.25 mg PO DAILY PRN 12/02/18 cetirizine 10 mg tablet 10 mg PO DAILY tab 12/02/18 glimepiride 4 mg tablet 4 mg PO QAM 12/02/18 lisinopril 20 mg tablet 20 mg PO QHS 12/02/18 metformin 500 mg tablet,extended 1,000 mg PO QAM tab 12/02/18 release 24 hr metformin 500 mg tablet,extended 1,000 mg PO QPM 12/02/18 release 24 hr montelukast 10 mg tablet 10 mg PO QPM 12/02/18 nitroglycerin 0.4 mg sublingual 0.4 mg SUBLINGUAL Q5-15M PRN 12/02/18 tablet rosuvastatin 40 mg tablet 40 mg PO DAILY 12/02/18 omeprazole 20 mg capsule,delayed 20 mg PO DAILY 01/05/19 release ticagrelor 90 mg tablet 90 mg PO BID #60 tab 02/01/19 - Allergies Allergies/Adverse Reactions: Allergies No Known Allergies Allergy (Verified 01/28/19 07:47) - Sleep Disorder Evaluation Hx of Sleep Apnea: No Do you snore loudly (louder than talking or can be heard through closed doors)?: Yes Do you often feel tired/ fatigued/ sleepy during daytime?: Yes Has anyone observed you stop breathing during sleep?: Yes History of Hypertension (for STOP score): Yes - PT STATES SHE HAD SLEEP STUDY IN THE PAST AND IT WAS INCONCLUSIVE STOP Results: Positive Advanced Directives - Advanced Directives Power of Air Brake Mechanic: No Living Will: No Advance Directives Information Provided: No Advance Directives on File: No DNR Order?:: No Past Medical History - Past Medical Illness Medical History: Past Medical History (Last Updated 02/03/19 @ 12:39 by Marcella Rosa) Atherosclerosis of coronary artery of jamul heart without angina pectoris (Chronic) I25.10 Essential hypertension (Chronic) I10 Hyperlipidemia (Chronic) E78.5 Abdominal aortic aneurysm, without rupture (Chronic) I71.4 Anxiety and depression F41.9, F32.9 Asthma J45.909 GERD (gastroesophageal reflux disease) K21.9 Lung nodules R91.8 Type 2 diabetes mellitus without complication E11.9 - Past Surgical History Surgical History: Past Surgical History (Last Updated 02/03/19 @ 12:39 by Marcella Rosa) History of coronary artery stent placement (Chronic) Onset Date: 01/31/19 Z95.5 KAITLYNN to mid and distal RCA, BMS to LAD 01/28/08; PCI-POBA-RV Marginal (Ostial) and KAITLYNN- ISR Mid RCA w/ 2.5 x 24 mm and 2.5 x 28 mm Synergy Stents 01/31/19 History of hysterectomy Onset Date: 2004 Z90.710 History of left heart catheterization Onset Date: 05/15/08 Z98.890 - Family History Summary Family History: Family History (Last Reviewed 01/05/19 @ 11:33 by Thomas Henao MD) Father , 64 Cancer Social History - Smoking History Smoking Status: Current every day smoker Years Smokin Packs Smoked per Day: 0.5 Hx Tobacco Use: Yes Hx Smoking Exposure: Yes - Alcohol Use Alcohol Usage: Yes - SOCIAL - Substance Abuse Hx Substance Use: No - Occupation Occupation (List type of work in comments):: 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 [employer] Hours worked per day:: 2 - Hobbies, Recreation, Social Activities Hobbies: Reading Recreational Activities: I am able to engage in most, but not all activities Social Environment - Status Marital Status: - Current Living Arrangements Living Environment:: Spouse - GRAND DAUGHTER ALSO LIVES WITH PT AND SPOUSE ([place]ARD[place]SHIP) - Children How many children do you have?: 2 Do any of your children live nearby?: Yes - Safety Do you feel safe in your surroundings?: Yes - Assistance Do you need any assistance at home?: NONE Review of Systems - Review of Systems Hints: Right click = Denies ([place]). Left click = Reports ([place]) Review of Present Symptoms: Reports: Shortness of Breath with Exertion, PVD - PT UNSURE AT THIS TIME, Fatigue. Denies: Shortness of Breath at Rest, Operative Discomfort, Angina, Wound Healing Risk Factor Assessment - Chief Complaint Chief Complaint: CURRENT PCI WITH STENT PT WHO PRESENTS TODAY FOR CR PHASE II EVAL - Vital Signs Temperature: 98.6 F Respiratory Rate: 20 Pulse Ox: 95 Blood Pressure: 100/72 Nailbeds:: PINK - Pulse Pulse Rate: 60 Pulse Rhythm: Regular - Hypertension How long have you been treated?: SEVERAL YEARS On medication(s)?: YES LISINOPRIL Blood Pressure Sitting - Left Arm: 100/72 - Stress Stress: Home/Family - Blood Cholesterol/Lipids Total Cholesterol (mg/dL) Goal = less than 200 mg/dL: 112 HDL Cholesterol (mg/dL) Goal = less than 40 mg/dL: 36 LDL Cholesterol (mg/dL) Goal = less than 70 mg/dL: 27 Triglycerides (mg/dL) Goal = less than 150 mg/dL: 245 - Diabetes Diabetic History: Type II Nutrition Referral for Diabetes: Yes - Obesity Height: 5 ft 1 in Weight:: 205 lb Weight in Pounds: 205.0 lbs Weight Source: Stated by Patient Body Mass Index (BMI): 38.7 Nutritional Referral for Obesity: Yes - PT INTERESTED IN LOSING APPROX 40-60 LBS - Physical Inactivity Physical Inactivity: Recreational activity - Risk Stratification Risk Guidelines: Lowest Risk: Risk Factor for Dyslipidemia - LIPID PROFILE NOT AVAIL AT THIS TIME, Moderate Risk: Risk Factor for Sedentary Lifestyle, Risk Factor for Depression, Highest Risk: Risk Factor for Smoking, Risk Factor for Diabetes, Risk Factor for Obesity, Risk Factor for Hypertension - For Smoking Smoking Risk Guidelines: Smoking Low Risk: None or quit greater than 6 months ago. Smoking Moderate Risk: Smoker or quit 6 months or less ago. Smoking High Risk: Smoker - For Dyslipidemia Dyslipidemia Risk Guidelines: Low Risk: Moderate Risk: High Risk: 15-25% fat 25.1-29% fat >/= 30% fat. <7% sat fat 7-9% sat fat >9% sat fat. <150 mg chol 150-299 mg chol >/= 300 mg chol. LDL <100 LDL 100-129 LDL >/= 130. Chol/HDL ratio <5.0 Chol/HDL ratio 5.0-6.0 Chol/HDL ratio >6.0. Triglycerides <100 Triglycerides 100-149 Triglycerides >/= 150 - For Diabetes Mellitus Diabetes Risk Guidelines: Diabetes Low Risk: HgA1c <6.5% and/or FBG <120. Diabetes Moderate Risk: HgA1c 6.6-7.9% and/or FBG 120-180. Diabetes High Risk: HgA1c >/= 8% and/or FBG >180 - For Obesity/Overweight Obesity/Overweight Risk Guidelines: Obesity Low Risk: BMI <25.0. Obesity Moderate Risk: BMI 25-29.9. Obesity High Risk: BMI >/= 30.0 - For Hypertension Hypertension Risk Guidelines: Hypertension Low Risk: Systolic <120 and Diastolic <80. Hypertension Moderate Risk: Systolic 120-139 and Diastolic 80-89. Hypertension High Risk: Systolic >/= 140 and Diastolic >/= 90 - For Sedentary Lifestyle Sedentary Lifestyle Risk Guidelines: Sedentary Lifestyle Low Risk: >/= 1,500 kcal/week. Sedentary Lifestyle Moderate Risk: 700-1,499 kcal/week. Sedentary Lifestyle High Risk: < 700 kcal/week - For Depression Depression Risk Guidelines: Depression Low Risk: Not clinically depressed. Depression Moderate Risk: Mildly depressed. Depression High Risk: Clinically depressed - Family History Family History: Family History (Last Reviewed 01/05/19 @ 11:33 by Thomas Henao MD) Father Cancer Motivation - Motivation to Participate On a scale of 1 to 10, how prepared are you to commit to attending program?: 10 What do you see as barriers to successfully being able to complete the program?: NONE What do you see as the benefits of succesfully completing the program? In other words, what do you hope to get out of participating in the program?: WT. LOSS, INREASED ENERGY Are there issues you are dealing with that will interfere with completing the program?: NONE Do you have a spouse or signficant other, family or friends who will help support you to complete the program?: SPOUSE
[2019-02-10 09:09] VITALS: BP 100/72; PULSE 60; RESP 20; TEMP 37; O2SAT 95; BMI 38.7
[2019-02-10 09:38] VITALS: BP 100/72
== END ==
PROVIDERS: Family Provider Internal Medicine; PCP Internal Medicine; Referring Provider Internal Medicine Cardiovascular Disease; Visit Provider Internal Medicine Cardiovascular Disease
DX: Z95.5 Presence of coronary angioplasty implant and graft (principal); I25.10 Atherosclerotic heart disease of native coronary artery without angina pectoris; E11.9 Type 2 diabetes mellitus without complications

== ENCOUNTER 2019-03-09 09:21 | Outpatient (RCR) | payer MEDICARE, SELFPAY ==
[2019-01-31 13:34] VITALS: BMI 36.2
[2019-02-10 09:09] VITALS: BMI 38.7
[2019-02-22 09:34] VITALS: BMI 38.1
== END 2019-03-11 23:59 ==
LOC: DC 09:21
PROVIDERS: Family Provider Internal Medicine; PCP Internal Medicine; Visit Provider Internal Medicine Cardiovascular Disease
DX: Z71.3 Dietary counseling and surveillance (principal); E11.8 Type 2 diabetes mellitus with unspecified complications; I10 Essential (primary) hypertension
CPT/HCPCS: G0108

== ENCOUNTER 2019-03-09 11:30 | Outpatient (RCR) | payer MEDICARE, SELFPAY ==
[2019-01-31 13:34] VITALS: BMI 36.2
[2019-02-10 09:09] VITALS: BMI 38.7
== END 2019-03-11 23:59 ==
LOC: CR 11:30
PROVIDERS: Family Provider Internal Medicine; PCP Internal Medicine; Referring Provider Internal Medicine Cardiovascular Disease; Visit Provider Internal Medicine Cardiovascular Disease
DX: I25.10 Atherosclerotic heart disease of native coronary artery without angina pectoris (principal); R91.1 Solitary pulmonary nodule; R94.39 Abnormal result of other cardiovascular function study; I10 Essential (primary) hypertension; E78.5 Hyperlipidemia, unspecified; I71.4 Abdominal aortic aneurysm, without rupture; Z95.5 Presence of coronary angioplasty implant and graft
CPT/HCPCS: 93798

== ENCOUNTER 2019-04-05 10:00 | Outpatient (RCR) | payer MEDICARE, SELFPAY ==
[2019-01-31 13:34] VITALS: BMI 36.2
[2019-02-22 09:34] VITALS: BMI 38.1
[2019-03-15 06:46] VITALS: BMI 36.8
== END 2019-04-09 23:59 ==
LOC: NS 10:00
PROVIDERS: Family Provider Internal Medicine; PCP Internal Medicine; Visit Provider Internal Medicine Cardiovascular Disease
DX: Z71.3 Dietary counseling and surveillance (principal); E11.8 Type 2 diabetes mellitus with unspecified complications; I10 Essential (primary) hypertension; E66.9 Obesity, unspecified; I25.10 Atherosclerotic heart disease of native coronary artery without angina pectoris; R91.1 Solitary pulmonary nodule; R94.39 Abnormal result of other cardiovascular function study; E78.5 Hyperlipidemia, unspecified; I71.4 Abdominal aortic aneurysm, without rupture; Z95.5 Presence of coronary angioplasty implant and graft
CPT/HCPCS: 93798; 97802; G0108

== ENCOUNTER 2019-04-08 11:30 | Outpatient (RCR) | payer MEDICARE, SELFPAY ==
[2019-01-31 13:34] VITALS: BMI 36.2
[2019-02-22 09:34] VITALS: BMI 38.1
--- NOTE | 2019-03-15 06:32 | CR.ITP_ITS ---
Diagnosis - General Information Admitting Diagnosis: Angioplasty and PCI w/stenting Personal Learning Style:: Audio/Visual, Written Barriers to Learning: Vision Impairment Stage of change r/t lifestyle modifications:: Action Gave educational material for:: Treating Heart Disease, Emotions & Heart Disease, Stress Management & Relaxation, Sleep Disorders & Heart Disease, How The Heart Works, What it means to have Heart Disease, How Coronary Artery Disease is Diagnosed, Heart Procedures, What Heart Medications Do, Risk Factors & Modifications, Living an Active Life, Nutrition - Education/Goals Individual Counseling: Initial Assessment: Nicotine/Smoking, Abnormal Cholesterol Levels, High Blood Pressure, Overweight/Obesity Cardiac Rehabilitation Goals: 1. Maintain the individual as the primary focus of care. 2. To improve the patient's quality of life. 3. Identification of cardiac risk factors and provide cardiac risk factor management. 4. Enhance the psychosocial status of the patient. 5. Reconditioning enough to allow the patient to resume customary activities. 6. Control symptoms of cardiac disease Personal Goals: Initial Assessment: Quit smoking (participate in smoking cessation, Improve energy level, Improve muscle strength and endurance, Improve diet and eating habits (eat healthier), Control risk factors (learn risk factor modification) Scale for measuring improvement of personal goals: Enter appropriate number in Comments. 2 = Unchanged. 3 = Slightly Better. 4 = Moderate Improvement. 5 = Met my Goal - Diagnosis & Disease Process Outcomes/Goals: Pt IDs own risk factors & lifestyle modifications by Session 10, Verbalizes symptoms of angina & response by session 3., Pt independently manages Plan/Interventions: Assist Pt to ID & engage in lifestyle modification to reduce CVD risk, Instruct on individual risk factors, Review symptoms of angina & emergency actions, Review secondary diagnosis & identify educational needs. 30 day Reassessments:: Progressing - Safety Referral to Physical Therapy: No Referral to [facility] Case Management: No Fall Risk Assessed:: Yes Assistive Devices:: None Exercise - 30-day Assessment - Visit Date of Eval: 03/15/19 Session #:: 10 - ROBERTHJoshua HAS MISSED 4 SCHEDULED APPOINTMENTS - Physician Prescribed Exercise Modalities: Treadmill, Airdyne, NuStep Frequency: 3x/week for 12 weeks [36 sessions] Intensity: 60-80% of age predicted maximum heart rate reserve Current METSs:: 4 Target Heart Rate:: 102-133 Current RPE:: 13-14 Maximum Excercise HR:: 100 Resting Blood Pressure: 128/64 Maximum Exercise Blood Pressure: 152/80 EKG Type: NSR TO SINUS TACHYCARDIAWITH RARE PACs AND PVCs Current Physical Activity or Exercising minutes: 30 MINUTES TWICE DAILY - Outcomes & Goals Goals:: Verbalizes understanding of THR, RPE & goal METS by session 6, Documents in home exercise log/reports 30 min aerobic 5 day/wk by DC, Demonstrates accurate pulse taking by DC - Intervention & Plan Exercise Program Goals: Instruct on personal THR & RPE, Instruct on MET level & personal MET goal, Show patient to take own pulse /validate performance until accurate, Instruct on home exercise - 30-day Reassessments 30 day Reassessments:: Progressing - Physical Activity Home Exercise Physical Activity - Home Exercise: Safe Exercise, Warm-up, Self-monitoring, Cool-Down, Home Exercise > 30 min Daily, Sitting Time <3 hours/daily - Outcomes & Goals Outcomes/Goals: Demonstrates correct Warm-up/exercise Cool-Down (S3) if = 2.5 METs, Verbalizes symptoms of exercise intolerance by Session 3 (S3), Demonstrate safe equipment use (S3) & follows exercise prescrition (6) - Intervention & Plan Plan/Intervention: Instruct warm-up & cool-down if exercising at > 2 METs, Instruct on symptoms of exercise intolerance & actions to take, Instruct & monitor on saf, Assess intial functional capacity & safety risk - 30-day Reassessments 30 day Reassessments:: Progressing Nutrition - 30-Day Assessment - Program Goals Nutrition Program Goals: LDL <100 optimal. 100 - 129 Near optimal. 130 - 159 Borderline High. 160 - 189 High. Total Cholesterol <200 desirable. 200 - 239 Borderline High. >/= 240 High. HDL < 40 Low >/=60 High. Triglycerides <150 desirable. <199 optimal. VlDL 5 - 40. HgbA1C <7%. BMI <25 Patient has diagnosis of Hyperlipidemia (ICD E78)?: Yes - Visit Date of Assessment:: 03/15/19 Session #:: 10 - Cholesterol/Lipids Triglycerides (mg/dL): 0 - UNAVAILABLE Determine presence & major risk factors that modify LDL goal: Cigarette smoking, Hypertension or hypertensive medication, Age men > 45 years; women >/= 55 years Outcomes/Goals: Pt IDs own risk factors & lifestyle modifications by Session 10, Verbalizes symptoms of angina & response by session 3., Pt independently manages Intervention/Plan: Instruct on personal lipid levels & lipid goals/NCEP guidelines, Instruct on cholesterol Referral to dietitian:: Yes - NUTRITIONAL THERAPY 30-day Reassessments:: Progressing - Diabetes (Other Core Measures) Diabetes Type: Not Applicable Insulin dependent injection/pump?: No Non-Insulin Dependent?: No Do you monitor your blood sugar at home?: No Referral to Diabetic Clinic:: No - Weight Mgt (Other Care) Height: 5 ft 1.8 in Weight:: 200 lb - OBESITY BMI: 36.8 Diagnosis Overweight/Obesity BMI> 30% ICD-10 E66: Yes Diagnosis High BMI/Morbid Obesity BMI> 35% ICD-10 Z68: Yes Outcomes/Goals: Pt sets, maintains & shows weight loss goal & trend during rehab Intervention/Plan: Instruct on ideal BMI & set weight loss goal w/patient, Assist pt to ID & incorporate diet changes for weight loss by S9, Refer to Structured Weight Loss program as appropriate, Encourage goal of using 250- 300dcal per session for weight loss 30 day Reassessments:: Progressing - LOST 4 POUNDS. - Healthy Eating Habits Will attend diet classes:: Yes Outcomes/Goals:: Consume diet rich in vegs,fruits,whole grain/high fiber,fish,lean meat, Limit sat/trans fats,cholesterol & added salts & sugars Intervention/Plan:: Assess current eating habits 30-day Reassessments:: Progressing - Education Gave educational materials for:: Healthy eating Medical- 30-Day Assessment - Visit Date of Eval: 03/15/19 - Medication Compliance Preventative Medication(s):: Aspirin, Statin/lipid, Beta jerman H/O mental health issues: depression, anxiety, or addiction?: No Doesn?t believe in the benefits of treatment?: No Believes medications are unnecessary or harmful?: No Has a concern about medication side effects?: No Expresses concern over the cost of medications?: No Outcomes/Goals: Verbalizes medications,desired effect & common side effects @ DC , Pt self-reports following medication regimen, Keeps card in wallet w/medications listed by DC Interventions/plans: Instruct on medication effects & side effects, Review medi cation list w/patient every two weeks, Instruct importance of taking meds as ordered & assist problem solving 30-day Reassessments:: Progressing - Tobacco Use Tobacco Use: Cigarettes How many cigarettes do you smoke per day?: 10 Do you use smokeless tobacco?: No Outcomes/Goals: Smoking cessation achieved or maintained by discharge, Identify aids/strategies for achieving smoking cessation by session 6 Interventions/plan: Instruct on effects of smoking & provide smoking cessation resource, Assist pt to set quit date & provide encouragement, Assist pt to develop strategies to achieve/maintain quit date, Assist pt w/nicotine replace ment & medication for cessation success 30-day Reassessments:: Progressing - Hypertension Hypertension Diagnosis:: Hypertension ICD-10 I10 Resting Blood Pressure:: 130/64 [place] [employer] Hypertension Guidelines: [place] [employer] Hypertension Guidelines. Normal BP Less than 120/80. Elevated BP 120/80. Hypertension Stage 1: BP 130-139/80-89. Hypertesnion Stage 2: BP 140 or higher/90 or higher. Hypertension Crisis: BP higher than 180/120 Peak Exercise Blood Pressure:: 170/90 Outcomes/Goals: Able to verbalize/achieve optimal blood pressure <130/80, Incorporates diet changes & exercise for blood pressure control by DC Interventions/plan: Instruct on optimal blood pressure, hypertension & medications, Instruct on effects of sodium, alcohol, stress, exercise &hypertension 30 day Reassessments:: Progressing - Tobacco Cessation Referral Smoking Cessation Referral:: Yes - PATIENT CONTINUES TO USE TOBACCO. Individual Education/Counseling:: Yes Education Schedule Given:: Yes Psychosocial - 30-Day Assess - VIsit Date of Eval: 03/15/19 Session #:: 10 Not Applicable: No History of previous Mental disease:: No - Target Goals Target Goals: Assess presence or absence of depression. Using a valid screening tool, maximizes coping skills. Positive support system - Psychosocial Test Tool Used:: [employer] QOL Cardiac, PHQ-9 Questionnaire phq-9 Severity: Severity. 1-4 Minimal Depression. 5-9 Mild Depression. 10-14 Moderate Depression. 15-19 Moderately Sever Depression. 20-27 Severe Depression. Rule: Total Score:: 8 - Referral to Behavioral Health PS - Interventions: Yes Referral to Physician if PHQ-9 if score is 5-9: - PHQ SCORE 8, Yes Attend Stress Management Classes - Outcomes/Goals: See list Psychosocial Outcomes/Goals:: ID's personal stressors & 2 strategies to manage stress by discharge - Intervention/Plan: See List Interventions/Plan:: Assess stressors,coping strategies & signs of derpression on admission, Instruct/assist pt to develop coping & personal stress Mgt strategies, Instruct patient to recognize signs & symptoms of depression, Instruct patient to recog - 30-day Reassessments: 30 day Reassessments:: Progressing Patient Health Questionnaire 30-Day Re-eval Assessment 1. Little interest or pleasure in doing things: More than half the days 2. Feeling down, depressed, or hopeless: Not at all 3. Trouble falling or staying asleep, or sleeping too much: Several days 4. Feeling tired or having little energy: More than half the days 5. Poor appetite or overeating: Several days 6. Feeling bad about yourself -- or that you are a failure or have let yourself or your family down: Several days 7. Trouble concentrating on things, such as reading the newspaper or watching television: Not at all 8. Moving or speaking so slowly that other people could have noticed. Or the opposite - being so fidgety or restless that you have been moving around a lot more than usual: Several days 9. Thoughts that you would be better off , or of hurting yourself in some way: Not at all How difficult have these problems made it for you to do your work, take care of things at home, or get along with other people?: Somewhat difficult Total Score: 8 Self-Efficacy 30-Day Re-eval Assessment We would like to know how confident you are in doing certain activities. Please select your confidence level for:: Select your confidence level for the following using the scale 1-10 where 1 is not at all confident and 10 is totally confident. Your score is the average of all 6 responses. Fatigue: How confident are you that you can keep the fatigue caused by your disease from interfering with the things you want to do? Select Number: 7 Physical Discomfort or Pain: How confident are you that you can keep the physical discomfort or pain of your disease from interfering with the things you want to do? Select Number: 6 Emotional Distress: How confident are you that you can keep the emotional distress caused by your disease from interfering with the things you want to do? Select Number: 7 Other Symptoms or Health Problems: How confident are you that you can keep other symptoms or health problems from interfering with the things you want to do? Select Number: 8 Different Tasks and Activities: How confident are you that you can do the different tasks and activities needed to manage your health condition so as to reduce your need to see a doctor? Select Number: 9 Medication: How confident are you that you can do things other than just taking medication to reduce how much your illness affects your everyday life? Select Number: 9 Total Score:: 7
[2019-03-15 06:46] VITALS: BP 128/64; BP 130/64; BP 170/90; BMI 36.8
== END 2019-04-09 23:59 ==
LOC: CR 11:30
PROVIDERS: Family Provider Internal Medicine; PCP Internal Medicine; Referring Provider Internal Medicine Cardiovascular Disease; Visit Provider Internal Medicine Cardiovascular Disease
DX: I25.10 Atherosclerotic heart disease of native coronary artery without angina pectoris (principal); R91.1 Solitary pulmonary nodule; R94.39 Abnormal result of other cardiovascular function study; I10 Essential (primary) hypertension; E78.5 Hyperlipidemia, unspecified; I71.4 Abdominal aortic aneurysm, without rupture; Z95.5 Presence of coronary angioplasty implant and graft
CPT/HCPCS: 93798

== ENCOUNTER 2019-04-25 11:30 | Outpatient (RCR) | payer MEDICARE, SELFPAY ==
[2019-02-22 09:34] VITALS: BMI 38.1
[2019-03-15 06:46] VITALS: BMI 36.8
[2019-04-10 00:45] VITALS: BP 128/64; BP 130/64; BP 170/90
--- NOTE | 2019-04-11 11:19 | CR.ITP_ITS ---
Diagnosis - General Information Admitting Diagnosis: S/P ANGIOPLASTY & STENT Personal Learning Style:: Audio/Visual, Written Barriers to Learning: Vision Impairment Stage of change r/t lifestyle modifications:: Action Gave educational material for:: Treating Heart Disease, Emotions & Heart Disease, Stress Management & Relaxation, Sleep Disorders & Heart Disease, How The Heart Works, What it means to have Heart Disease, How Coronary Artery Disease is Diagnosed, Heart Procedures, What Heart Medications Do, Risk Factors & Modifications, Living an Active Life, Nutrition - Education/Goals Individual Counseling: Initial Assessment: Nicotine/Smoking - CURRENT EVERYDAY SMOKER, Abnormal Cholesterol Levels - HYPERLIPIDEMIA, High Blood Pressure, Overweight/Obesity - OVERWEIGHT BMI 36.7, Diabetes - DM TYPE II Cardiac Rehabilitation Goals: 1. Maintain the individual as the primary focus of care. 2. To improve the patient's quality of life. 3. Identification of cardiac risk factors and provide cardiac risk factor management. 4. Enhance the psychosocial status of the patient. 5. Reconditioning enough to allow the patient to resume customary activities. 6. Control symptoms of cardiac disease Personal Goals: Initial Assessment: Quit smoking (participate in smoking cessation - 3, Improve energy level - 4, Improve muscle strength and endurance - 3, Improve diet and eating habits (eat healthier) - 3, Control risk factors (learn risk factor modification) - 4 Scale for measuring improvement of personal goals: Enter appropriate number in Comments. 2 = Unchanged. 3 = Slightly Better. 4 = Moderate Improvement. 5 = Met my Goal - Diagnosis & Disease Process Outcomes/Goals: Pt IDs own risk factors & lifestyle modifications by Session 10, Verbalizes symptoms of angina & response by session 3., Pt independently manages Plan/Interventions: Assist Pt to ID & engage in lifestyle modification to reduce CVD risk, Instruct on individual risk factors, Review symptoms of angina & emergency actions, Review secondary diagnosis & identify educational needs. 30 day Reassessments:: Progressing 30 day Reassessments:: Progressing Exercise - 60-day Assessment - Visit Date of Eval: 04/11/19 Session #:: 20 - Physician Prescribed Exercise Modalities: Treadmill, Airdyne, NuStep Frequency: 3x/week for 12 weeks [36 sessions] Intensity: 60-80% of age predicted maximum heart rate reserve Current METSs:: 3.5 UNCHANGED Target Heart Rate:: 102-133 Current RPE:: 11-12 Maximum Excercise HR:: 104 Resting Blood Pressure: 180/76 - ELEVATED RESTING BPs Maximum Exercise Blood Pressure: 200/90 EKG Type: NSR TO SINUST ACHYCARDIA WITHOUT ECTOPY. - Outcomes & Goals Goals:: Verbalizes understanding of THR, RPE & goal METS by session 6, Documents in home exercise log/reports 30 min aerobic 5 day/wk by DC, Demonstrates accurate pulse taking by DC - Intervention & Plan Exercise Program Goals: Instruct on personal THR & RPE, Instruct on MET level & personal MET goal, Show patient to take own pulse /validate performance until accurate, Instruct on home exercise - 30-day Reassessments 30 day Reassessments:: Progressing - Physical Activity Home Exercise Physical Activity - Home Exercise: Safe Exercise, Warm-up, Self-monitoring, Cool-Down, Home Exercise > 30 min Daily, Sitting Time <3 hours/daily - Outcomes & Goals Outcomes/Goals: Demonstrates correct Warm-up/exercise Cool-Down (S3) if = 2.5 METs, Verbalizes symptoms of exercise intolerance by Session 3 (S3), Demonstrate safe equipment use (S3) & follows exercise prescrition (6) - Intervention & Plan Plan/Intervention: Instruct warm-up & cool-down if exercising at > 2 METs, Instruct on symptoms of exercise intolerance & actions to take, Instruct & monitor on saf, Assess intial functional capacity & safety risk - 30-day Reassessments 30 day Reassessments:: Progressing Nutrition - 60-Day Assessment - Program Goals Nutrition Program Goals: LDL <100 optimal. 100 - 129 Near optimal. 130 - 159 Borderline High. 160 - 189 High. Total Cholesterol <200 desirable. 200 - 239 Borderline High. >/= 240 High. HDL < 40 Low >/=60 High. Triglycerides <150 desirable. <199 optimal. VlDL 5 - 40. HgbA1C <7%. BMI <25 Patient has diagnosis of Hyperlipidemia (ICD E78)?: Yes - Visit Date of Assessment:: 04/11/19 Session #:: 20 - Cholesterol/Lipids Triglycerides (mg/dL): 0 - NO RECENT LAB WORK Determine presence & major risk factors that modify LDL goal: Cigarette smoking, Hypertension or hypertensive medication, Age men > 45 years; women >/= 55 years Outcomes/Goals: Pt IDs own risk factors & lifestyle modifications by Session 10, Verbalizes symptoms of angina & response by session 3., Pt independently manages Intervention/Plan: Instruct on personal lipid levels & lipid goals/NCEP guidelines, Instruct on cholesterol Referral to dietitian:: No - Seen by dietitian on 03/30/2019 30-day Reassessments:: Progressing - Diabetes (Other Core Measures) Diabetes Type: Diagnosis Type II ICD-10 E11 Insulin dependent injection/pump?: No Non-Insulin Dependent?: Yes Do you monitor your blood sugar at home?: Yes Referral to Diabetic Clinic:: No - seen by Dietitian on 03/30/2019 Outcomes/Goals:: Able to state symptoms of, Able to state, Able to state Intervention/Plan:: Instruct on, Refer to, Instruct on 30-day Reassessments:: Progressing - Weight Mgt (Other Care) Not Applicable: No Height: 5 ft 1.8 in Weight:: 201 lb - unchanged BMI: 37.0 Diagnosis High BMI/Morbid Obesity BMI> 35% ICD-10 Z68: Yes Outcomes/Goals: Pt sets, maintains & shows weight loss goal & trend during rehab Intervention/Plan: Instruct on ideal BMI & set weight loss goal w/patient, Assist pt to ID & incorporate diet changes for weight loss by S9, Refer to Structured Weight Loss program as appropriate, Encourage goal of using 250- 300dcal per session for weight loss 30 day Reassessments:: Not Met - Healthy Eating Habits Will attend diet classes:: Yes Outcomes/Goals:: Consume diet rich in vegs,fruits,whole grain/high fiber, fish,lean meat, Limit sat/trans fats,cholesterol & added salts & sugars Intervention/Plan:: Assess current eating habits 30-day Reassessments:: Progressing - Education Gave educational materials for:: Signs & symptoms of hypoglycemia, Signs & symptoms of hyperglycemia, Relate diabetes to coronary artery disease, Healthy eating Medical- 60-Day Assessment - Visit Date of Eval: 04/11/19 Session #:: 20 - Medication Compliance Preventative Medication(s):: Aspirin, Ticagrelor/P2Y12 inhibitor, Statin/lipid H/O mental health issues: depression, anxiety, or addiction?: No Doesn?t believe in the benefits of treatment?: No Believes medications are unnecessary or harmful?: No Has a concern about medication side effects?: No Expresses concern over the cost of medications?: No Outcomes/Goals: Verbalizes medications,desired effect & common side effects @ DC, Pt self-reports following medication regimen, Keeps card in wallet w/medications listed by DC Interventions/plans: Instruct on medication effects & side effects, Review medication list w/patient every two weeks, Instruct importance of taking meds as ordered & assist problem solving 30-day Reassessments:: Progressing - Tobacco Use Tobacco Use: Cigarettes Outcomes/Goals: Smoking cessation achieved or maintained by discharge, Identify aids/strategies for achieving smoking cessation by session 6 Interventions/plan: Instruct on effects of smoking & provide smoking cessation resource, Assist pt to set quit date & provide encouragement, Assist pt to develop strategies to achieve/maintain quit date, Assist pt w/nicotine replacement & medication for cessation success 30-day Reassessments:: Not Met - Hypertension Hypertension Diagnosis:: Hypertension ICD-10 I10 Resting Blood Pressure:: 184/80 [place] [employer] Hypertension Guidelines: [place] [employer] Hypertension Guidelines. Normal BP Less than 120/80. Elevated BP 120/80. Hypertension Stage 1: BP 130-139/80-89. Hypertesnion Stage 2: BP 140 or higher/90 or higher. Hypertension Crisis: BP higher than 180/120 Peak Exercise Blood Pressure:: 200/90 Outcomes/Goals: Able to verbalize/achieve optimal blood pressure <130/80, Incorporates diet changes & exercise for blood pressure control by DC Interventions/plan: Instruct on optimal blood pressure, hypertension & medi cations, Instruct on effects of sodium, alcohol, stress, exercise &hypertension 30 day Reassessments:: Not Met Reassessment Notes & Comments:: Blood pressure remain elevated at rest and with exercise levels. Reported to physician. - Tobacco Cessation Referral Smoking Cessation Referral:: Yes Individual Education/Counseling:: Yes Education Schedule Given:: Yes Psychosocial - 60-Day Assess - VIsit Date of Eval: 04/11/19 Session #:: 20 Not Applicable: Yes History of previous Mental disease:: No - Target Goals Target Goals: Assess presence or absence of depression. Using a valid screening tool, maximizes coping skills. Positive support system - Psychosocial Test Tool Used:: Angel Dutta QOL Cardiac, PHQ-9 Questionnaire phq-9 Severity: Severity. 1-4 Minimal Depression. 5-9 Mild Depression. 10-14 Moderate Depression. 15-19 Moderately Sever Depression. 20-27 Severe Depression. Rule: - Referral to Behavioral Health PS - Interventions: Yes Referral to Physician if PHQ-9 if score is 5-9: - PHQ-9 score = 8 REFER TO PCP, Yes Attend Stress Management Classes, No Referral to Behavioral Health if PHQ-9 score >9: - PHQ-9 score = 8, No Referral to [facility] - Outcomes/Goals: See list Psychosocial Outcomes/Goals:: ID's personal stressors & 2 strategies to manage stress by discharge - Intervention/Plan: See List Interventions/Plan:: Assess stressors,coping strategies & signs of derpression on admission, Instruct/assist pt to develop coping & personal stress Mgt strateg ies, Instruct patient to recognize signs & symptoms of depression, Instruct patient to recog - 30-day Reassessments: 30 day Reassessments:: Progressing Patient Health Questionnaire 60-Day Re-eval Assessment 1. Little interest or pleasure in doing things: More than half the days 2. Feeling down, depressed, or hopeless: Not at all 3. Trouble falling or staying asleep, or sleeping too much: Several days 4. Feeling tired or having little energy: More than half the days 5. Poor appetite or overeating: Several days 6. Feeling bad about yourself -- or that you are a failure or have let yourself or your family down: Several days 7. Trouble concentrating on things, such as reading the newspaper or watching television: Not at all 8. Moving or speaking so slowly that other people could have noticed. Or the opposite - being so fidgety or restless that you have been moving around a lot more than usual: Several days 9. Thoughts that you would be better off , or of hurting yourself in some way: Not at all How difficult have these problems made it for you to do your work, take care of things at home, or get along with other people?: Somewhat difficult Total Score: 8 Self-Efficacy 60-Day Re-eval Assessment We would like to know how confident you are in doing certain activities. Please select your confidence level for:: Select your confidence level for the following using the scale 1-10 where 1 is not at all confident and 10 is totally confident. Your score is the average of all 6 responses. Fatigue: How confident are you that you can keep the fatigue caused by your disease from interfering with the things you want to do? Select Number: 8 Physical Discomfort or Pain: How confident are you that you can keep the physical discomfort or pain of your disease from interfering with the things you want to do? Select Number: 7 Emotional Distress: How confident are you that you can keep the emotional distress caused by your disease from interfering with the things you want to do? Select Number: 8 Other Symptoms or Health Problems: How confident are you that you can keep other symptoms or health problems from interfering with the things you want to do? Select Number: 8 Different Tasks and Activities: How confident are you that you can do the different tasks and activities needed to manage your health condition so as to reduce your need to see a doctor? Select Number: 9 Medication: How confident are you that you can do things other than just taking medication to reduce how much your illness affects your everyday life? Select Number: 9 Total Score:: 8
[2019-04-11 11:38] VITALS: BP 180/76; BP 184/80; BP 200/90; BMI 37.0
--- NOTE | 2019-05-11 06:45 | PCM.CR.ITP ---
Diagnosis - General Information Admitting Diagnosis: Angioplasty and coronary stent Personal Learning Style:: Audio/Visual, Written Barriers to Learning: Vision Impairment Stage of change r/t lifestyle modifications:: Action Gave educational material for:: Treating Heart Disease, Emotions & Heart Disease, Stress Management & Relaxation, Sleep Disorders & Heart Disease, How The Heart Works, What it means to have Heart Disease, How Coronary Artery Disease is Diagnosed, Heart Procedures, What Heart Medications Do, Risk Factors & Modifications, Living an Active Life, Nutrition - Education/Goals Individual Counseling: Initial Assessment: Abnormal Cholesterol Levels, High Blood Pressure, Overweight/Obesity Cardiac Rehabilitation Goals: 1. Maintain the individual as the primary focus of care. 2. To improve the patient's quality of life. 3. Identification of cardiac risk factors and provide cardiac risk factor management. 4. Enhance the psychosocial status of the patient. 5. Reconditioning enough to allow the patient to resume customary activities. 6. Control symptoms of cardiac disease Personal Goals: Initial Assessment: Quit smoking (participate in smoking cessation - 3, Improve energy level - 4, Improve knowledge of cardiac disease - 4, Improve muscle strength and endurance - 4, Improve diet and eating habits (eat healthier) - 4, Control risk factors (learn risk factor modification) - 4 Scale for measuring improvement of personal goals: Enter appropriate number in Comments. 2 = Unchanged. 3 = Slightly Better. 4 = Moderate Improvement. 5 = Met my Goal - Diagnosis & Disease Process Outcomes/Goals: Pt IDs own risk factors & lifestyle modifications by Session 10, Verbalizes symptoms of angina & response by session 3., Pt independently manages Plan/Interventions: Assist Pt to ID & engage in lifestyle modification to reduce CVD risk, Instruct on individual risk factors, Review symptoms of angina & emergency actions, Review secondary diagnosis & identify educational needs. 30 day Reassessments:: Progressing 30 day Reassessments:: Progressing - Safety Referral to Physical Therapy: No Referral to [facility] Case Management: No Fall Risk Assessed:: Yes Assistive Devices:: None Exercise - 60-day Assessment - Visit Date of Eval: 05/11/19 Session #:: 26 - Zara has postponed participation in CR due to Covid19 virus. - Physician Prescribed Exercise Modalities: Treadmill, Airdyne, NuStep Frequency: 3x/week for 12 weeks [36 sessions] Intensity: 60-80% of age predicted maximum heart rate reserve Current METSs:: 3.5 Target Heart Rate:: 102-133 Current RPE:: 11-15 Maximum Excercise HR:: 104 Resting Blood Pressure: 134/72 Maximum Exercise Blood Pressure: 178/88 EKG Type: Sinus bradycardia to sinus rhythm with rare PVCs. - Outcomes & Goals Goals:: Verbalizes understanding of THR, RPE & goal METS by session 6, Documents in home exercise log/reports 30 min aerobic 5 day/wk by DC, Demonstrates accurate pulse taking by DC - Intervention & Plan Exercise Program Goals: Instruct on personal THR & RPE, Instruct on MET level & personal MET goal, Show patient to take own pulse /validate performance until accurate, Instruct on home exercise - 30-day Reassessments 30 day Reassessments:: Progressing - Physical Activity Home Exercise Physical Activity - Home Exercise: Safe Exercise, Warm-up, Self-monitoring, Cool-Down, Home Exercise > 30 min Daily, Sitting Time <3 hours/daily - Outcomes & Goals Outcomes/Goals: Demonstrates correct Warm-up/exercise Cool-Down (S3) if = 2.5 METs, Verbalizes symptoms of exercise intolerance by Session 3 (S3), Demonstrate safe equipment use (S3) & follows exercise prescrition (6) - Intervention & Plan Plan/Intervention: Instruct warm-up & cool-down if exercising at > 2 METs, Instruct on symptoms of exercise intolerance & actions to take, Instruct & monitor on saf, Assess intial functional capacity & safety risk - 30-day Reassessments 30 day Reassessments:: Progressing Nutrition - 60-Day Assessment - Program Goals Nutrition Program Goals: LDL <100 optimal. 100 - 129 Near optimal. 130 - 159 Borderline High. 160 - 189 High. Total Cholesterol <200 desirable. 200 - 239 Borderline High. >/= 240 High. HDL < 40 Low >/=60 High. Triglycerides <150 desirable. <199 optimal. VlDL 5 - 40. HgbA1C <7%. BMI <25 Patient has diagnosis of Hyperlipidemia (ICD E78)?: Yes - Visit Date of Assessment:: 05/11/19 Session #:: 26 - Cholesterol/Lipids Outcomes/Goals: Pt IDs own risk factors & lifestyle modifications by Session 10, Verbalizes symptoms of angina & response by session 3., Pt independently manages Intervention/Plan: Instruct on personal lipid levels & lipid goals/NCEP guidelines, Instruct on cholesterol Referral to dietitian:: No 30-day Reassessments:: Progressing - Weight Mgt (Other Care) Not Applicable: No Height: 5 ft 1.8 in Weight:: 198 lb BMI: 36.4 Diagnosis Overweight/Obesity BMI> 30% ICD-10 E66: Yes Diagnosis High BMI/Morbid Obesity BMI> 35% ICD-10 Z68: Yes Outcomes/Goals: Pt sets, maintains & shows weight loss goal & trend during rehab Intervention/Plan: Instruct on ideal BMI & set weight loss goal w/patient, Assist pt to ID & incorporate diet changes for weight loss by S9, Encourage goal of using 250-300dcal per session for weight loss 30 day Reassessments:: Progressing - Healthy Eating Habits Will attend diet classes:: Yes Outcomes/Goals:: Consume diet rich in vegs,fruits,whole grain/high fiber,fish,lean meat, Limit sat/trans fats,cholesterol & added salts & sugars Intervention/Plan:: Assess current eating habits 30-day Reassessments:: Progressing - Education Gave educational materials for:: Healthy eating Medical- 60-Day Assessment - Visit Date of Eval: 05/11/19 Session #:: 26 - Medication Compliance Preventative Medication(s):: Aspirin, Ticagrelor/P2Y12 inhibitor, Statin/lipid, Beta jerman H/O mental health issues: depression, anxiety, or addiction?: Yes Doesn?t believe in the benefits of treatment?: No Believes medications are unnecessary or harmful?: No Has a concern about medication side effects?: No Expresses concern over the cost of medications?: No Outcomes/Goals: Verbalizes medications,desired effect & common side effects @ DC, Pt self-reports following medication regimen, Keeps card in wallet w/medications listed by DC Interventions/plans: Instruct on medication effects & side effects, Review medication list w/patient every two weeks, Instruct importance of taking meds as ordered & assist problem solving 30-day Reassessments:: Progressing - Tobacco Use Tobacco Use: Cigarettes Do you use smokeless tobacco?: No Outcomes/Goals: Smoking cessation achieved or maintained by discharge, Identify aids/strategies for achieving smoking cessation by session 6 Interventions/plan: Instruct on effects of smoking & provide smoking cessation resource, Assist pt to set quit date & provide encouragement, Assist pt to develop strategies to achieve/maintain quit date, Assist pt w/nicotine replacement & medication for cessation success 30-day Reassessments:: Progressing - Hypertension Hypertension Diagnosis:: Hypertension ICD-10 I10 Resting Blood Pressure:: 134/72 [place] [employer] Hypertension Guidelines: [place] [employer] Hypertension Guidelines. Normal BP Less than 120/80. Elevated BP 120/80. Hypertension Stage 1: BP 130-139/80-89. Hypertesnion Stage 2: BP 140 or higher/90 or higher. Hypertension Crisis: BP higher than 180/120 Peak Exercise Blood Pressure:: 182/84 Outcomes/Goals: Able to verbalize/achieve optimal blood pressure <130/80, Incorporates diet changes & exercise for blood pressure control by DC Interventions/plan: Instruct on optimal blood pressure, hypertension & medications, Instruct on effects of sodium, alcohol, stress, exercise &hypertension 30 day Reassessments:: Progressing - Tobacco Cessation Referral Smoking Cessation Referral:: Yes Individual Education/Counseling:: No Education Schedule Given:: Yes Psychosocial - 60-Day Assess - VIsit Date of Eval: 05/11/19 Session #:: 26 Not Applicable: No History of previous Mental disease:: Yes History of Emotional Disorders: Depression - Target Goals Target Goals: Assess presence or absence of depression. Using a valid screening tool, maximizes coping skills. Positive support system - Psychosocial Test Tool Used:: [employer] QOL Cardiac, PHQ-9 Questionnaire phq-9 Severity: Severity. 1-4 Minimal Depression. 5-9 Mild Depression. 10-14 Moderate Depression. 15-19 Moderately Sever Depression. 20-27 Severe Depression. Rule: - Referral to Behavioral Health PS - Interventions: Yes Attend Stress Management Classes, No Referral to Behavioral Health if PHQ-9 score >9:, No Referral to [facility], No Referral to Physician if PHQ-9 if score is 5-9: - Outcomes/Goals: See list Psychosocial Outcomes/Goals:: ID's personal stressors & 2 strategies to manage stress by discharge - Intervention/Plan: See List Interventions/Plan:: Assess stressors,coping strategies & signs of derpression on admission, Instruct/assist pt to develop coping & personal stress Mgt strategies, Instruct patient to recognize signs & symptoms of depression, Instruct patient to recog - 30-day Reassessments: 30 day Reassessments:: Progressing Patient Health Questionnaire 60-Day Re-eval Assessment 1. Little interest or pleasure in doing things: More than half the days 2. Feeling down, depressed, or hopeless: Not at all 3. Trouble falling or staying asleep, or sleeping too much: Several days 4. Feeling tired or having little energy: More than half the days 5. Poor appetite or overeating: Several days 6. Feeling bad about yourself -- or that you are a failure or have let yourself or your family down: Several days 7. Trouble concentrating on things, such as reading the newspaper or watching television: Not at all 8. Moving or speaking so slowly that other people could have noticed. Or the opposite - being so fidgety or restless that you have been moving around a lot more than usual: Several days 9. Thoughts that you would be better off , or of hurting yourself in some way: Not at all How difficult have these problems made it for you to do your work, take care of things at home, or get along with other people?: Somewhat difficult Total Score: 8 Self-Efficacy 60-Day Re-eval Assessment We would like to know how confident you are in doing certain activities. Please select your confidence level for:: Select your confidence level for the following using the scale 1-10 where 1 is not at all confident and 10 is totally confident. Your score is the average of all 6 responses. Fatigue: How confident are you that you can keep the fatigue caused by your disease from interfering with the things you want to do? Select Number: 8 Physical Discomfort or Pain: How confident are you that you can keep the physical discomfort or pain of your disease from interfering with the things you want to do? Select Number: 9 Emotional Distress: How confident are you that you can keep the emotional distress caused by your disease from interfering with the things you want to do? Select Number: 9 Other Symptoms or Health Problems: How confident are you that you can keep other symptoms or health problems from interfering with the things you want to do? Select Number: 8 Different Tasks and Activities: How confident are you that you can do the different tasks and activities needed to manage your health condition so as to reduce your need to see a doctor? Select Number: 9 Medication: How confident are you that you can do things other than just taking medication to reduce how much your illness affects your everyday life? Select Number: 10 Total Score:: 8
[2019-05-11 06:59] VITALS: BP 134/72; BP 182/84; BMI 36.4
== END 2019-05-10 23:59 ==
LOC: CR 11:30
PROVIDERS: Family Provider Internal Medicine; PCP Internal Medicine; Referring Provider Internal Medicine Cardiovascular Disease; Visit Provider Internal Medicine Cardiovascular Disease
DX: R94.39 Abnormal result of other cardiovascular function study (principal); R91.1 Solitary pulmonary nodule; I25.10 Atherosclerotic heart disease of native coronary artery without angina pectoris; I10 Essential (primary) hypertension; E78.5 Hyperlipidemia, unspecified; I71.4 Abdominal aortic aneurysm, without rupture; Z95.5 Presence of coronary angioplasty implant and graft
CPT/HCPCS: 93798

== ENCOUNTER 2019-06-07 15:30 | Outpatient (RCR) | payer MEDICARE, SELFPAY ==
[2019-02-22 09:34] VITALS: BMI 38.1
[2019-03-15 06:46] VITALS: BMI 36.8
[2019-05-11 06:59] VITALS: BMI 36.4
== END 2019-06-07 23:59 | disposition home or self-care (01) ==
LOC: NS 15:30
PROVIDERS: Family Provider Internal Medicine; PCP Internal Medicine; Visit Provider Internal Medicine Cardiovascular Disease
DX: Z71.3 Dietary counseling and surveillance (principal); E11.8 Type 2 diabetes mellitus with unspecified complications; E66.9 Obesity, unspecified
CPT/HCPCS: 97803

== ENCOUNTER 2019-07-02 04:10 | Observation (INO) | payer MEDICARE, SELFPAY ==
[2019-05-27 12:51] VITALS: BMI 36.3
[2019-06-10 00:04] VITALS: BMI 37.0
[2019-07-02] VITALS (8 sets, daily range): BP systolic 107–168; BP diastolic 53–85; PULSE 57–74; RESP 14–18; TEMP 36.4–36.7; O2SAT 88–98; BMI 36.5; BMI 35.5; BMI 385.5
--- NOTE | 2019-07-02 04:35 | EKG12_ITS ---
Test Reason : CP Blood Pressure : / mmHG Vent. Rate : 067 BPM Atrial Rate : 067 BPM P-R Int : 178 ms QRS Dur : 082 ms QT Int : 446 ms P-R-T Axes : 044 -02 057 degrees QTc Int : 471 ms Normal sinus rhythm Inferior infarct , age undetermined Abnormal ECG Confirmed by EARLENE DODSON, ERIN ([id number]), editor at large CARLY KRUEGER ([id number] on 07/05/2019 2:59:28 PM Referred By: LILLIAN Confirmed By:ERIN HENAO MD
--- NOTE | 2019-07-02 04:36 | ED.VIS.GEN ---
History of Present Illness Chief Complaint: Chest Pain Informant: Patient Narrative: Presents with chest discomfort. She stated approximately an hour and a half ago she woke with left-sided chest heaviness. She took a nitroglycerin and was able to get it to feel better. It is now currently gone. She denies any associated symptoms. Over the last few days she has noticed some back discomfort the last for short period of time and then goes away. She did not treat this. She did not think it was secondary to her heart. When she woke up this morning this concerned her and she came in. She has a history of 6 cardiac stents. The last heart cath she had was in January and she received a stent at that time. She is on Plavix and baby aspirin. Worsened by nothing. Relieved by nitroglycerin. Denies any dissection risk factors. No current discomfort in her back. Denies any PE risk factors. - Past Medical History (1) Abdominal aortic aneurysm, without rupture Status: Chronic (2) Atherosclerosis of coronary artery of wiyot heart without angina pectoris Status: Chronic (3) Essential hypertension Status: Chronic (4) History of coronary artery stent placement Status: Chronic Comment: KAITLYNN to mid and distal RCA, BMS to LAD 01/28/08; PCI-POBA-RV Marginal (Ostial) and KAITLYNN- ISR Mid RCA w/ 2.5 x 24 mm and 2.5 x 28 mm Synergy Stents 01/31/19 (5) Hyperlipidemia Status: Chronic Past Medical History - Allergies and Home Meds Allergies/Adverse Reactions: Allergies No Known Allergies Allergy (Verified 05/27/19 12:52) Prior records reviewed: Yes Past Medical History: - - See problem list Surgical History: - - Cardiac stent x6 Lives: With Family Smoking Status: Current every day smoker Alcohol: None Drugs: None Review of Systems General: Denies: Chills, Fever, Sweats Eyes: Denies: Visual changes - bilaterally, Diplopia ENT: Denies: Rhinorrhea, Sore throat Cardiovascular: Reports: Chest pain. Denies: Palpitations Respiratory: Denies: Dyspnea, Cough, Dyspnea on exertion Gastrointestinal: Denies: Abdominal pain, Nausea, Vomiting, Diarrhea, Melena, Hematochezia Genitourinary: Denies: Dysuria, Hematuria, Frequency Musculoskeletal: Denies: Back pain, Extremity Pain Skin: Denies: Rash, Wounds Neurological: Denies: Headache, Weakness, Numbness Physical Exam Vital Signs/Narrative: Vital Signs Temp Pulse Resp BP Pulse Ox 07/02/19 04:11 98.0 F 74 18 168/80 H 88 General: Well nourished, Well developed, No Acute Distress Head: Normocephalic, Atraumatic Eyes: Perrl, EOMI ENT: Moist mucous membranes, No rhinorrhea Neck: Supple, Nontender Cardiovascular: Regular rate, Regular rhythm, No murmurs Respiratory: No distress, CTA bilaterally, Chest nontender Abdomen: Soft, Nontender, Nondistended, Normal bowel sounds Back: Nontender, Normal Inspection Extremities: Nontender, No edema Skin: Normal color, No rash Neurological: Alert, Oriented x3, Cranial nerves II-XII grossly intact, Normal Strength, Normal Sensation Psychological: Normal affect, Normal Mood Diagnostic/Tx/Re-eval - Medical Decision Making EKG shows sinus rhythm at a rate of 67. Q waves inferior lead III and aVF. Q waves V1 and V2. No acute STEMI. Change from prior EKG patient pain-free at this time. Lab work and chest x-ray obtained. Lab work shows chronically elevated creatinine. Troponin negative. This is a 1 hour level however. Patient remained pain-free while here. She did elect to stay in the hospital for further evaluation and treatment of this chest pain. She is high risk due to the fact that she has 6 stents. I do not think she has a PE or dissection. Discussed with the hospitalist and will be admitted ED Disposition - Plan for ED Patient: Disposition: Acute Care Hospital [facility] Diagnosis: Chest pain at rest
[2019-07-02] MEDS: Aspirin 81 MG TAB.CHEW 324 MG PO (04:45)
--- NOTE | 2019-07-02 04:50 | RAD_ITS ---
STUDY: X-RAY CHEST REASON FOR EXAM: Female, 63 years old. CHEST PAIN TECHNIQUE: PA and lateral COMPARISON: 01/25/2019 FINDINGS: The lungs are clear and expanded. There is no demonstrated pleural abnormality. Normal size heart. Normal mediastinum and frannie. Normal visualized pulmonary arteries. Normal visualized aortic arch and descending thoracic aorta. Normal visualized thoracic spine. Normal visualized ribs, clavicles, and shoulders. There is no demonstrated abnormality of the visualized soft tissue structures of the upper abdomen. RAD/Chest PA and Lateral IMPRESSION: Normal x-ray examination of the chest. Electronically Signed: El Umanzor MD at 5:14 EDT , Service support ,
[2019-07-02 04:55] LABS: Absolute Lymphocyte Count 2.92 X10^3/uL (0.83-4.51); Absolute Neutrophil Count 5.6 X10^3/uL (2.0-7.7); Basophil# 0.04 X10^3/uL; Basophil% 0.4 % (0-1); Eosinophil# 0.34 X10^3/uL; Eosinophils% 3.5 % (0-5); Hematocrit 40.7 % (37-47); Hemoglobin 12.9 g/dL (12.0-15.0); Lymphocyte # 2.92 X10^3/ul (4.0); Lymphocyte % 30.4 % (19-41); Mean Corp Hgb Conc 31.7 g/dL (32-36); Mean Corpuscular Volume 88.3 fL (81-99); Mean Platelet Vol. 9.1 fl (6.2-12.0); Monocyte# 0.69 X10^3/uL; Monocyte% 7.2 % (0-10); NRBC Flagged by Analyzer 0 % (0-5); Neutrophil # 5.56 X10^3/uL (2.7-7.7); Neutrophil % 58.1 % (47-70); Platelet Count 242 K/mm3 (150-450); RBC Distribution Width CV 13.7 % (11.6-14.6); RBC Distribution Width SD 43.8 fl (35.1-43.9); Red Blood Count 4.61 M/mm3 (4.2-5.4); White Blood Count 9.6 K/mm3 (4.4-11.0)
[2019-07-02 05:12] LABS: Anion Gap 7 (5-15); BUN 16 mg/dL (7-18); BUN/Creat Ratio 12.5 RATIO (10-20); Chloride 111 mmol/L (98-107); Creatinine, Serum 1.28 mg/dL (0.55-1.02); EST Glomerular Filtration Rate 45 mL/min (>60); Est Glom Filt Rate - Afr Amer 54 mL/min (>60); Estimated Creatinine Clearance 35.58 ml/min; Glucose 132 mg/dL (74-106); Potassium 3.4 mmol/L (3.5-5.1); Sodium Level 143 mmol/L (136-145)
--- NOTE | 2019-07-02 05:49 | PCM.HP.STD ---
Problem List (1) Chest pain at rest Status: Acute (2) Atherosclerosis of coronary artery of [place] heart without angina pectoris Status: Chronic (3) History of coronary artery stent placement Status: Chronic Comment: KAITLYNN to mid and distal RCA, BMS to LAD 01/28/08; PCI-POBA-RV Marginal (Ostial) and KAITLYNN- ISR Mid RCA w/ 2.5 x 24 mm and 2.5 x 28 mm Synergy Stents 01/31/19 (4) Essential hypertension Status: Chronic (5) Hyperlipidemia Status: Chronic (6) Abdominal aortic aneurysm, without rupture Status: Chronic History of Present Illness Date of Admission: 07/02/19 Chief Complaint: Chest pain The patient is a 63 year old F patient with a history of tobacco abuse; CAD status post 6 stents with last stent in January 2019; hypertension; and diabetes mellitus presenting with chest pain. Her chest pain is located at the left side of her chest. She woke up with a chest pain. Her chest pain been going on for 2 days. The chest pain radiated to her left upper arm. She thinks the pain started from her mid back. She reports mild nausea with her chest pain. She denies vomiting, shortness of breath or diaphoresis. Her chest pain increases with exertion and typically it improved with rest. At home she took some nitroglycerin to help with her chest pain. At the emergency department her troponin was negative. Her EKG showed Q waves in inferior leads of which were unchanged from previous. Patient was given aspirin 324 mg at the emergency department. Past Medical History Past Medical History (Chronic Problems): Chronic Problems (Last Reviewed 07/02/19 @ 07:[address] Mukesh Wills MD) Atherosclerosis of coronary artery of [place] heart without angina pectoris (Chronic) History of coronary artery stent placement (Chronic 01/31/19) KAITLYNN to mid and distal RCA, BMS to LAD 01/28/08; PCI-POBA-RV Marginal (Ostial) and KAITLYNN- ISR Mid RCA w/ 2.5 x 24 mm and 2.5 x 28 mm Synergy Stents 01/31/19 Essential hypertension (Chronic) Hyperlipidemia (Chronic) Abdominal aortic aneurysm, without rupture (Chronic) Medical History: Medical History (Last Reviewed 07/02/19 @ 07:[address] Mukesh Wills MD) Atherosclerosis of coronary artery of [place] heart without angina pectoris (Chronic) I25.10 Essential hypertension (Chronic) I10 Hyperlipidemia (Chronic) E78.5 Abdominal aortic aneurysm, without rupture (Chronic) I71.4 Anxiety and depression F41.9, F32.9 Asthma J45.909 GERD (gastroesophageal reflux disease) K21.9 Lung nodules R91.8 Type 2 diabetes mellitus without complication E11.9 Allergies No Known Allergies Allergy (Verified 05/27/19 12:52) Home Medications: Ambulatory Orders Medication Instructions Recorded Aspirin 81 mg PO DAILY 04/14/16 albuterol sulfate 2.5 mg INHALATION Q4H PRN 12/02/18 alprazolam 0.25 mg tablet 0.25 mg PO DAILY PRN 12/02/18 cetirizine 10 mg tablet 10 mg PO DAILY tab 12/02/18 metformin 500 mg tablet,extended 1,000 mg PO QAM tab 12/02/18 release 24 hr metformin 500 mg tablet,extended 1,000 mg PO QPM 12/02/18 release 24 hr montelukast 10 mg tablet 10 mg PO QPM 12/02/18 nitroglycerin 0.4 mg sublingual 0.4 mg SUBLINGUAL Q5-15M PRN 12/02/18 tablet omeprazole 20 mg capsule,delayed 20 mg PO DAILY 01/05/19 release amlodipine 5 mg tablet 5 mg PO DAILY #90 tab 05/27/19 atenolol 50 mg tablet 50 mg PO QHS #90 tab 05/27/19 clopidogrel 75 mg tablet 75 mg PO DAILY #90 tab 05/27/19 glimepiride 4 mg tablet 4 mg PO BID tab 05/27/19 lisinopril 20 mg tablet 20 mg PO QHS #90 tab 05/27/19 rosuvastatin 40 mg tablet 40 mg PO DAILY #90 tab 05/27/19 Dulaglutide [Trulicity] 1 unit SQ QWEEK 07/02/19 Surgical History: Surgical History (Last Reviewed 07/02/19 @ 07:[address] Mukesh Wills MD) History of coronary artery stent placement (Chronic) Onset Date: 01/31/19 Z95.5 KAITLYNN to mid and distal RCA, BMS to LAD 01/28/08; PCI-POBA-RV Marginal (Ostial) and KAITLYNN- ISR Mid RCA w/ 2.5 x 24 mm and 2.5 x 28 mm Synergy Stents 01/31/19 History of hysterectomy Onset Date: 2004 Z90.710 History of left heart catheterization Onset Date: 05/15/08 Z98.890 Surgical History: - - Cardiac stent x6 Lives: With Family Smoking Status: Current every day smoker Alcohol: None Drugs: None - *Family History Maternal Family History: Family History (Last Reviewed 07/02/19 @ 07:[address] Mukesh Wills MD) Father Cancer Paternal Family History: Family History (Last Reviewed 07/02/19 @ 07:[address] Mukesh Wills MD) Father Cancer Review of Systems Constitutional: Denies: Chills, Fever, Weight Change HEENT: Denies: Head Aches, Sinus Congestion, Sinus Drainage Cardiovascular: Reports: Chest Pain. Denies: Palpitations Respiratory: Denies: Cough, Shortness of breath at rest, Sputum production Gastrointestinal: Reports: Nausea. Denies: Abdominal Pain, Vomiting Genitourinary: Denies: Dysuria Musculoskeletal: Reports: Back Pain. Denies: Joint Pain, Joint Tenderness Skin: Denies: Rash, Wounds Neurological: Denies: Numbness, Tingling, Focal weakness Psychiatric: Denies: Anxiety, Depression, Homicidal Ideations, Suicidal Ideations Hematologic/ Lymphatic: Denies: Easy Bruising, Easy Bleeding VTE Information - Inpt Only VTE Present on Admission: No VTE Mechan Device Prophylaxis: SCD's VTE Pharm Prophylaxis ordered?: No Patient Problems: Active and Suspected Problems (Last Reviewed 07/02/19 @ 07:[address] Mukesh Wills MD) Chest pain at rest (Acute) - Physical Exam Vitals/I&O's: Vital Signs Temp Pulse Resp BP Pulse Ox 98.0 F 74 18 168/80 H 97 07/02/19 04:11 07/02/19 04:11 07/02/19 04:11 07/02/19 04:11 07/02/19 04:45 Oxygen Flow Rate (L/min) 2 Oxygen Delivery Method Nasal Cannula Weight: 90.5 kg Body Mass Index (BMI) 36.5 General: Alert, Oriented x3, Cooperative HEENT: Atraumatic, PERRLA, EOMI, Normocephalic Neck: Supple, No JVD, Negative Carotid Bruits Lungs: Clear to auscultation, Normal air movement Cardiovascular: Regular rate, No murmurs Abdomen: Bowel Sounds Present, Soft, Non Tender Extremities: No edema, Capillary Refill Less than 3 Seconds Skin: No rashes, No breakdown Musculoskeletal: No Tenderness to Palpation of Joints or Extremities Neurological: Cranial nerves II-XII grossly intact Psych/Mental Status: Normal Affect, Appropriate Laboratory Results 07/02/19 04:20: WBC 9.6, RBC 4.61, Hgb 12.9, Hct 40.7, MCV 88.3, MCH 28.0, MCHC 31.7 L, RDW Std Deviation 43.8, RDW Coeff of Otis 13.7, Plt Count 242, MPV 9.1, Immature Gran % (Auto) 0.400, Neut % (Auto) 58.1, Lymph % (Auto) 30.4, [place] % (Auto) 7.2, Eos % (Auto) 3.5, Baso % (Auto) 0.4, Absolute Neuts (auto) 5.6, Absolute Lymphs (auto) 2.92, Nucleated RBC % 0 07/02/19 04:20: Sodium 143, Potassium 3.4 L, Chloride 111 H, Carbon Dioxide 25.0, Anion Gap 7, BUN 16, Creatinine 1.28 H, Estim Creat Clear Calc 35.58, Est GFR (MDRD) Af Amer 54 L, Est GFR (MDRD) Non-Af 45 L, BUN/Creatinine Ratio 12.5, Glucose 132 H, Calcium 9.0, Troponin I < 0.015 Assessment/Plan All Active Problems (Last Reviewed 07/02/19 @ 07:[address] Mukesh Wills MD) Chest pain at rest (Acute) Abnormal nuclear stress test (Resolved) The patient is a 63 year old F patient with a history of tobacco abuse; CAD status post 6 stents with last stent in January 2019; hypertension; and diabetes mellitus presenting with chest pain at rest. Chest pain at rest Place on a monitored bed at PCU CXR independently reviewed confirms no acute cardiopulmonary process. EKG independently reviewed confirms Q waves in inferior leads unchanged from previous in January 2019. Continue daily baby aspirin and Plavix. SL NTG 0.4 mg prn as needed for chest pain We will check lipid panel. Statin: High intensity statin continued. Serial cardiac enzymes Stat EKG as needed for chest pain Recommended stress test. However patient does not want a stress test. She only wants serial cardiac enzymes which I think is not unreasonable. Lisinopril continued parameters. Atenolol continued parameters. Hypertension On presentation her blood pressure was within goal. Continue home blood pressure medication with parameters. Diabetes mellitus Mild hyperglycemia on presentation. Since it is too early in her admission would hold home metformin. On Trulicity once a week. Glimepiride continued. Accu-Chek QA CHS with correction scale insulin. Tobacco abuse; Counseled Declined nicotine patch. DVT prophylaxis SCD while planning for cardiac work up for chest pain OBSV E&M: 17330 Initial observation care L2
--- NOTE | 2019-07-02 06:48 | NURSING ---
pcu cp dr maxwell
--- NOTE | 2019-07-02 07:35 | EKG12_ITS ---
Test Reason : CP ADMISSION Blood Pressure : / mmHG Vent. Rate : 059 BPM Atrial Rate : 059 BPM P-R Int : 182 ms QRS Dur : 076 ms QT Int : 466 ms P-R-T Axes : 025 017 065 degrees QTc Int : 461 ms Sinus bradycardia Septal infarct , age undetermined Nonspecific T wave abnormality Abnormal ECG Confirmed by HUMERA DODSON, LACEY ([id number]), brands editor CARLY KRUEGER ([id number]) on 07/07/2019 3:07:57 PM Referred By: ENA Confirmed By:LACEY GRUBBS MD
[2019-07-02 07:56] LABS: Bedside Glucose 122 mg/dL (70-110)
[2019-07-02] MEDS: Clopidogrel Bisulfate 75 MG Tablet PO (09:27)
[2019-07-02] MEDS: Aspirin 81 MG TAB.CHEW PO (09:28)
[2019-07-02] MEDS: Potassium Chloride 10mEq/100mL 10 MEQ/100 ML IV.SOLN. 100 MEQ IV BOLUS (09:28)
[2019-07-02] MEDS: amLODIPine 5 MG Tablet PO (12:23)
[2019-07-02] MEDS: Loratadine 10 MG Tablet PO (12:24)
[2019-07-02] MEDS: Pantoprazole Sodium 20 MG Tablet PO (12:24)
--- NOTE | 2019-07-02 12:38 | STRESSREP_ITS ---
Stress Test Report Exercise myocardial perfusion stress test. 63-year-old lady with a history of multiple coronary artery stenting procedures. Recent angioplasty and stenting in January 2019 to the mid right coronary artery. Stress protocol: Resting KG demonstrates sinus bradycardia with a rate of 58 bpm normal intervals are noted resting blood pressures 130/60 mmHg. The patient exercised according to regular [place] protocol for total duration of 5 minutes and 15 seconds the maximum heart rate attained was 142 bpm which was 90% of maximum predicted heart rate the maximum workload was 7 metabolic equivalents. Patient maintained sinus rhythm throughout the recording. At rest there were no ST or T wave changes noted suggest ischemia at peak exercise upsloping ST changes only were noted with no meet the criteria for ischemia. Resting blood pressure was 130/60 with a peak blood pressure 172/60 mmHg. The test was terminated due to dyspnea no c hest pain was noted. Myocardial perfusion protocol. 12.0 mCi of technetium 99m sestamibi was injected at rest. The patient exercised according to regular Kw[place]wo protocol for 7 minutes. At peak exercise 36.0 mCi of technetium 99m sestamibi was injected stress images were obtained stress and rest images were reconstructed and compared in the short axis vertical long horizontal long axis. Gated images were also obtained. Perfusion SPECT analysis: Review of the images demonstrate normal perfusion noted in the septum anterior wall and lateral wall. The mid inferior wall on the stress images demonstrates a perfusion defect which is medium in size. The resting images demonstrate a similar perfusion defect with minimal improvement of the edges suggesting a previous infarct with minimal barbara-infarct ischemia. Gated SPECT analysis: The gated ejection fraction is noted to be normal. Conclusion: Exercise myocardial perfusion stress test with no angina noted. 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 Preserved ejection fraction. This is a low risk scan.
[2019-07-02 12:40] LABS: Bedside Glucose 91 mg/dL (70-110)
--- NOTE | 2019-07-02 12:58 | DCINST_ITS ---
- Discharge Diagnoses Current Active Problems: Current Active and Chronic Problems (Last Updated 07/02/19 @ 10:15 by Marcella Rosa) Chest pain at rest (Acute) You will use the following diet at home:: Calorie/Carbohydrate Controlled (specify 1200, 1400, etc), Cardiac Your food should be the consistency of: Regular Discharge Activity: May Not Drive Call your doctor if you observe: Fever of 101 or Higher, Coldness, Increased Pain, Numbness or Tingling, Inability to urinate, Inability to have a bowel movement, Using more than one pad per hour, Shortness of breath, Fainting spells, Swelling in the ankles, Chest pain, Calf discomfort, Uncontrolled pain Additional Instructions: Advised outpatient vascular profile in 1 weeks and follow-up PCP Allergies/Adverse Reactions: Allergies No Known Allergies Allergy (Verified 05/27/19 12:52) Medications to take at Discharge Aspirin 81 mg PO DAILY 04/14/16 albuterol sulfate 2.5 mg INHALATION Q4H PRN 12/02/18 alprazolam 0.25 mg tablet 0.25 mg PO DAILY PRN 12/02/18 cetirizine 10 mg tablet 10 mg PO DAILY tab 12/02/18 montelukast 10 mg tablet 10 mg PO QHS 12/02/18 nitroglycerin 0.4 mg sublingual tablet 0.4 mg SUBLINGUAL Q5-15M PRN 12/02/18 omeprazole 20 mg capsule,delayed release 20 mg PO DAILY 01/05/19 amlodipine 5 mg tablet 5 mg PO DAILY #90 tab 05/27/19 clopidogrel 75 mg tablet 75 mg PO DAILY #90 tab 05/27/19 glimepiride 4 mg tablet 4 mg PO DAILY tab 05/27/19 rosuvastatin 40 mg tablet 40 mg PO DAILY #90 tab 05/27/19 Atenolol 50 mg PO QHS #90 tab 07/02/19 Dulaglutide [Trulicity] 1 unit SQ QWEEK 07/02/19 Lisinopril 20 mg PO QHS #90 tab 07/02/19 Metformin HCl [Metformin HCl ER] 500 mg PO QAM #0 tab 07/02/19 Metformin HCl [Metformin HCl ER] 500 mg PO QPM #0 07/02/19 Primary Care Physician: Clotilde Dias MD [Primary Care Provider] - Please follow up with your Primary Care Physician in: In 2 weeks Test Results: Test results from this visit will be discussed in further detail at your follow- up appointment, if applicable. Please Follow Up With: Thomas Washington MD When: In 2 to 4 weeks
--- NOTE | 2019-07-02 13:03 | DS.PCM_ITS ---
Discharge Date and Diagnosis - Problem List Patient Problems: Active and Suspected Problems (Last Updated 07/02/19 @ 10:15 by Marcella Rosa) Chest pain at rest (Acute) Date of Admission: 07/02/19 Date of Discharge: 07/02/19 - Primary Discharge Diagnosis Acute Problems: Active Problems (Last Updated 07/02/19 @ 10:15 by Marcella Rosa) Chest pain at rest (Acute) - Secondary Discharge Diagnosis Chronic Problems: Chronic Problems (Last Updated 07/02/19 @ 10:15 by Marcella Rosa) Atherosclerosis of coronary artery of [place] heart without angina pectoris (Chronic) History of coronary artery stent placement (Chronic 01/31/19) KAITLYNN to mid and distal RCA, BMS to LAD 01/28/08; PCI-POBA-RV Marginal (Ostial) and KAITLYNN- ISR Mid RCA w/ 2.5 x 24 mm and 2.5 x 28 mm Synergy Stents 01/31/19 Essential hypertension (Chronic) Hyperlipidemia (Chronic) Abdominal aortic aneurysm, without rupture (Chronic) Nicotine dependence (Chronic) Hospital Course and Treatment Imaging Results: 07/02/19 04:50 Chest PA and Lateral [RAD] Stat 07/02/19 09:51 Nuclear Stress Test - Treadmil [NM] Routine Summary of Care Provided: The patient is a 63 year old F with history of coronary artery status post stent, being followed by Dr. kruger came to ER with interscapular chest pain on exertion acid with mild shortness of breath with suspicion of angina. Patient was admitted in PCU. Serial troponin enzymes were negative. Patient had EKG which shows normal sinus rhythm at 67 bpm and repeat EKG sinus bradycardia 59 bp m with old septal infarct. Potassium 3.4 replaced. Furthermore patient, patient had nuclear perfusion stress test which is reported no acute stress- induced ischemia. Patient had mild elevated creatinine 1.28 which is better than previous 1.34 IN January 2019. Patient advised to hold metformin for 5 more days then decrease to 500 mg twice daily and lisinopril hold for 2 days. Fasting profile in 1 week and follow with PCP. Discharge medication reconciliation done. Discharge follow-up instructions completed. Discharge process discussed with the patient and all questions were answered to patient's satisfaction. Discussed with Dr. kruger follow-up in 2 to 4 weeks. Total time spent, exact 35 minutes on discharge meds reconciliation, examination, coordination of care with nurses and ancillary staff, review of imaging and blood test and discussion with the patient on follow-up instructions [] Patient Problems: Active and Suspected Problems (Last Updated 07/02/19 @ 10:15 by Marcella Rosa) Chest pain at rest (Acute) Objective: Seen and examined. Patient was admitted with few days of interscapular pain on exertion with relief at rest, high suspicion for angina. This was associated mild shortness of breath. - Physical Exam Vitals/I&O's: Vital Signs Temp Pulse Resp BP Pulse Ox 97.8 F 69 18 108/70 95 07/02/19 12:27 07/02/19 12:27 07/02/19 12:27 07/02/19 12:27 07/02/19 12:27 Oxygen Flow Rate (L/min) 2 Oxygen Delivery Method Room Air Weight: 194 lb 3.636 oz Body Mass Index (BMI) 35.5 Intake and Output for Last 24 Hours 06/30/19 07/01/19 07/02/19 23:59 23:59 23:59 Intake Total 65 / 65 Balance 65 / 65 General: Alert, Oriented x3, Cooperative HEENT: Atraumatic, PERRLA, EOMI, Normocephalic Neck: Supple, No JVD, Negative Carotid Bruits Lungs: Clear to auscultation, Normal air movement, No rhonchi, No wheeze, No rales Cardiovascular: Regular rate, Regular Rhythm, Normal S1, Normal S2, No murmurs Abdomen: Bowel Sounds Present, Soft, Non Tender, Non-Distended Extremities: No edema, Capillary Refill Less than 3 Seconds Skin: No rashes, No breakdown Musculoskeletal: No Tenderness to Palpation of Joints or Extremities, Arthritic Changes Neurological: Cranial nerves II-XII grossly intact, Deep Tendon Reflexes 2+/4 and Symmetrical, Neuro grossly intact Psych/Mental Status: Normal Affect, Appropriate Laboratory Results 07/02/19 04:20: WBC 9.6, RBC 4.61, Hgb 12.9, Hct 40.7, MCV 88.3, MCH 28.0, MCHC 31.7 L, RDW Std Deviation 43.8, RDW Coeff of Otis 13.7, Plt Count 242, MPV 9.1, Immature Gran % (Auto) 0.400, Neut % (Auto) 58.1, Lymph % (Auto) 30.4, [place] % (Auto) 7.2, Eos % (Auto) 3.5, Baso % (Auto) 0.4, Absolute Neuts (auto) 5.6, Absolute Lymphs (auto) 2.92, Nucleated RBC % 0 07/02/19 04:20: Sodium 143, Potassium 3.4 L, Chloride 111 H, Carbon Dioxide 25.0, Anion Gap 7, BUN 16, Creatinine 1.28 H, Estim Creat Clear Calc 35.58, Est GFR (MDRD) Af Amer 54 L, Est GFR (MDRD) Non-Af 45 L, BUN/Creatinine Ratio 12.5, Glucose 132 H, Calcium 9.0, Troponin I < 0.015 07/02/19 07:36: Troponin I Pending 07/02/19 07:48: POC Glucose 122 H 07/02/19 10:14: Troponin I < 0.015 07/02/19 12:22: POC Glucose 91 Current Medications Albuterol Sulfate (Ventolin Aerosols) 2.5 mg INHALATION Q4H PRN PRN Reason: WHEEZING Alprazolam (Xanax) 0.25 mg PO DAILY PRN PRN PRN Reason: ANXIETY Amlodipine Besylate (Norvasc) 5 mg PO DAILY [facility] Last Admin: 07/02/19 12:23 Dose: 5 mg Documented by: Aspirin ([facility]spirin, Baby) [facility] Last Admin: 07/02/19 09:28 Dose: 81 mg Documented by: Atenolol (Tenormin (Beta Latoya)) 50 mg PO QHS [facility] Atorvastatin Calcium (Lipitor) 80 mg PO QHS [facility] Clopidogrel Bisulfate (Plavix) 75 mg PO DAILY [facility] Last Admin: 07/02/19 09:27 Dose: 75 mg Documented by: Dextrose (D50w Syringe) 0 gm IV X1 PRN; Protocol PRN Reason: Hypoglycemia [facility]pir[facility] (Amaryl) [facility] Glucagon () 1 mg IM .X1 PRN PRN Reason: Hypoglycemia Sodium Chloride () 500 mls @ 15 mls/hr IV PRN PRN PRN Reason: Blood Transfusion Sodium Chloride () 250 mls @ 15 mls/hr IV .[id number] PRN PRN Reason: Saline Flush Sodium Chloride () 250 mls @ 15 mls/hr IV .[id number] PRN PRN Reason: Additional IVPB Infusion Insulin Human Lispro (Humalog Kwikpen (Bkc)) 0 unit SC ACHS [facility]; Protocol Last Admin: 07/02/19 12:24 Dose: Not Given Documented by: Lisinopril (Zestril) 20 mg PO QHS [facility] Loratadine (Claritin) 10 mg PO DAILY [facility] Last Admin: 07/02/19 12:24 Dose: 10 mg Documented by: Montelukast Sodium (Singulair) 10 mg PO QHS [facility] Nitroglycerin (Nitrostat) 0.4 mg SUBLINGUAL Q5M PRN PRN Reason: CARDIAC/CHEST PAIN Pantoprazole Sodium (Protonix) 20 mg PO DAILY [facility] Last Admin: 07/02/19 12:24 Dose: 20 mg Documented by: Sodium Chloride () 10 - 40 ml IV UD PRN PRN Reason: SALINE FLUSH Discharge Activity: May Not Drive Call your doctor if you observe: Fever of 101 or Higher, Coldness, Increased Pain, Numbness or Tingling, Inability to urinate, Inability to have a bowel movement, Using more than one pad per hour, Shortness of breath, Fainting spells, Swelling in the ankles, Chest pain, Calf discomfort, Uncontrolled pain Home Medications: Medications to take at Discharge Aspirin 81 mg PO DAILY 04/14/16 albuterol sulfate 2.5 mg INHALATION Q4H PRN 12/02/18 alprazolam 0.25 mg tablet 0.25 mg PO DAILY PRN 12/02/18 cetirizine 10 mg tablet 10 mg PO DAILY tab 12/02/18 montelukast 10 mg tablet 10 mg PO QHS 12/02/18 nitroglycerin 0.4 mg sublingual tablet 0.4 mg SUBLINGUAL Q5-15M PRN 12/02/18 omeprazole 20 mg capsule,delayed release 20 mg PO DAILY 01/05/19 amlodipine 5 mg tablet 5 mg PO DAILY #90 tab 05/27/19 clopidogrel 75 mg tablet 75 mg PO DAILY #90 tab 05/27/19 glimepiride 4 mg tablet 4 mg PO DAILY tab 05/27/19 rosuvastatin 40 mg tablet 40 mg PO DAILY #90 tab 05/27/19 Atenolol 50 mg PO QHS #90 tab 07/02/19 Dulaglutide [Trulicity] 1 unit SQ QWEEK 07/02/19 Lisinopril 20 mg PO QHS #90 tab 07/02/19 Metformin HCl [Metformin HCl ER] 500 mg PO QAM #0 tab 07/02/19 Metformin HCl [Metformin HCl ER] 500 mg PO QPM #0 07/02/19 Primary Care Physician: Clotilde Dias MD [Primary Care Provider] - Please follow up with your Primary Care Physician in: In 2 weeks Please Follow Up With: Thomas Kruger MD When: In 2 to 4 weeks Medical Necessity - Tobacco Use Smoking Status: Current every day smoker Meaningful Use Info Meaningful Use Diagnoses (Choose all that apply): None applicable OBSV E&M: 57283 Observ/hosp same date L3
== END 2019-07-02 12:58 | disposition home or self-care (01) ==
LOC: ED 06:32 → PCU 06:39
PROVIDERS: Admitting Provider Hospitalist; Emergency Provider Emergency Medicine; PCP Internal Medicine; Visit Provider Internal Medicine
DX: R07.9 Chest pain, unspecified (principal); E11.65 Type 2 diabetes mellitus with hyperglycemia; I71.4 Abdominal aortic aneurysm, without rupture; I25.10 Atherosclerotic heart disease of native coronary artery without angina pectoris; I10 Essential (primary) hypertension; J45.909 Unspecified asthma, uncomplicated; E78.5 Hyperlipidemia, unspecified; F41.9 Anxiety disorder, unspecified; F32.9 Major depressive disorder, single episode, unspecified; F17.210 Nicotine dependence, cigarettes, uncomplicated; Z79.82 Long term (current) use of aspirin; Z79.84 Long term (current) use of oral hypoglycemic drugs; Z95.5 Presence of coronary angioplasty implant and graft; Z79.899 Other long term (current) drug therapy
CPT/HCPCS: 36415; 71046; 78452; 80048; 82962; 84484; 85025; 93005; 93017; 96360; 99218; 99285; 99406; A9500; J7040; A4216; G0378

== ENCOUNTER → 2021-05-30 | Outpatient (CLI) | payer MEDICARE, SELFPAY ==
[2019-06-10 00:04] VITALS: BMI 37.0
--- NOTE | 2021-05-30 12:53 | ECHOD_ITS ---
Version 2 Left Ventricle Normal LV size. Left ventricular systolic function is normal. The estimated ejection fraction is 65 %. Stage 1 diastolic dysfunction. No regional wall motion abnormalities noted. Right Ventricle Normal RV size. Normal systolic function. Mitral Valve Normal mitral valve. Mild (1+) eccentric mitral valve insufficiency. Aortic Valve Trisinus/trileaflet aortic valve. Mild focal aortic valve calcification. Peak aortic valve gradient 16 mmHg. Mean aortic valve gradient 8 mmHg. Mild aortic stenosis. Pulmonic Valve Normal pulmonic valve. Great Vessels Normal aortic root. The pulmonary artery is normal size. Normal inferior vena cava. Pericardium/Pleural No pericardial effusion. MMode/2D Measurements & Calculations LVIDd: 4.6 cm IVSd: 0.99 cm LVOT diam: 2.0 cm LVIDs: 2.3 cm LVPWd: 0.65 cm RVDd: 3.0 cm FS: 49.3 % LVOT area: 3.2 cm2 Ao root diam: 3.1 cm LAV(MOD-sp4): 40.9 ml LVAd ap4: 21.0 cm2 LVLd ap4: 6.5 cm EDV(MOD-sp4): 55.5 ml EDV(sp4-el): 57.4 ml LVAs ap4: 11.3 cm2 LVLs ap4: 5.1 cm ESV(MOD-sp4): 21.4 ml ESV(sp4-el): 21.0 ml EF(MOD-sp4): 61.5 % EF(sp4-el): 63.4 % SV(MOD-sp4): 34.1 ml SV(sp4-el): 36.4 ml LA A4 area: 15.4 cm2 LA dimension(2D): 3.8 cm Doppler Measurements & Calculations MV E max tommy: 85.3 cm/sec Lat Peak E' Tommy: 5.6 cm/sec Med Peak E' Tommy: 4.1 cm/sec MV A max tommy: 97.2 cm/sec E/E' lat: 15.3 E/E' med: 20.9 MV E/A: 0.88 Ao V2 max: 200.3 cm/sec LV V1 max: 120.1 cm/sec SV(LVOT): 95.0 ml Ao max P.1 mmHg LV V1 max P.8 mmHg Ao V2 mean: 131.8 cm/sec LV V1 mean P.0 mmHg Ao mean P.0 mmHg LV V1 mean: 82.0 cm/sec Ao V2 VTI: 45.1 cm LV V1 VTI: 29.3 cm ENRICO(I,D): 2.1 cm2 ENRICO(V,D): 1.9 cm2 PA V2 max: 88.4 cm/sec ECHO/Echo Complete Interpretation Summary Normal LV size. Left ventricular systolic function is normal. The estimated ejection fraction is 65 %. Stage 1 diastolic dysfunction. Mild focal aortic valve calcification. Mild aortic stenosis. Ordering Physician: Paty Figueroa Performed By: Dania Christensen RCS
== END | disposition home or self-care (01) ==
PROVIDERS: PCP Internal Medicine; Visit Provider Physician Assistant Medical
DX: I25.10 Atherosclerotic heart disease of native coronary artery without angina pectoris (principal); R01.1 Cardiac murmur, unspecified
CPT/HCPCS: 93306

== ENCOUNTER → 2022-02-27 | Outpatient (CLI) | payer MEDICARE, SELFPAY ==
[2019-06-10 00:04] VITALS: BMI 37.0
[2022-02-27 13:03] LABS: AST(SGOT) 13 U/L (15-37); Alanine Aminotransfer ALT/SGPT 18 U/L (13-56); Albumin, Serum 3.5 g/dL (3.2-5.0); Alkaline Phosphatase 118 U/L (45-117); Bilirubin, Direct 0.13 mg/dL (0.00-0.30); Cholesterol 109 mg/dL (200); High Density Lipoprotein 37 mg/dL; Protein, Total 7.5 g/dL (6.4-8.2); Triglycerides 256 mg/dL; Very Low Density Lipoprotein 51 mg/dL (5-40)
== END | disposition home or self-care (01) ==
PROVIDERS: PCP Internal Medicine; Referring Provider Internal Medicine Cardiovascular Disease; Visit Provider Internal Medicine Cardiovascular Disease
DX: I25.2 Old myocardial infarction (principal); I10 Essential (primary) hypertension; E78.5 Hyperlipidemia, unspecified; Z95.5 Presence of coronary angioplasty implant and graft
CPT/HCPCS: 36415; 80061; 80076

== ENCOUNTER → 2022-03-10 | Outpatient (CLI) | payer MEDICARE, SELFPAY ==
[2019-06-10 00:04] VITALS: BMI 37.0
--- NOTE | 2022-03-10 19:06 | STRESSREP ---
Stress Test Report Pharmacologic myocardial perfusion stress test. 66-year-old lady with a history of coronary artery disease Resting EKG demonstrates sinus bradycardia with a rate of 50 bpm. Resting blood pressure is 120/64 mmHg. 0.4 mg of regadenoson was infused per usual protocol followed by rapid intravenous saline flush injection. Continuous EKG monitoring was performed. The maximum heart rate was 77 bpm which was 50% of max impacted heart rate the maximum workload was 1 metabolic equivalent. At rest there were no ST or T wave changes noted to suggest ischemia and at peak infusion nonspecific ST changes were noted which did not meet the criteria for ischemia. No clinical angina is noted. The final blood pressure was 112/64 mmHg. Myocardial perfusion protocol. 14.5 mCi of technetium 99m sestamibi was injected at rest. 0.4 mg of regadenoson was infused per usual protocol. At peak infusion 44 point mCi of technetium 99m sestamibi was injected stress images were obtained stress and rest images were reconstructed and compared in the short axis vertical long and horizontal long axis. Gated images were also obtained. Perfusion SPECT analysis: Review of the stress images demonstrate normal uptake of tracer noted in all areas of the myocardium. The resting images similar demonstrated normal uptake of tracer noted in all areas of the myocardium. No areas of reversibility are noted to suggest ischemia and no previous infarct is noted. Gated SPECT analysis: The gated ejection fraction is 72%. Conclusion: Normal pharmacologic myocardial perfusion stress test. Preserved ejection fraction.
== END | disposition home or self-care (01) ==
LOC: CVS 07:13
PROVIDERS: PCP Internal Medicine; Visit Provider Internal Medicine Cardiovascular Disease
DX: I25.10 Atherosclerotic heart disease of native coronary artery without angina pectoris (principal)
CPT/HCPCS: 78452; 93017; A9500; A4216; J2785

== ENCOUNTER → 2024-03-01 | Outpatient (CLI) | payer MEDICARE, SELFPAY ==
[2019-06-10 00:04] VITALS: BMI 37.0
--- NOTE | 2024-03-01 09:52 | ECHOCS_ITS ---
Reason For Study: Murmur Procedure This was a 2D Doppler, Color Flow transthoracic echocardiogram. The study was technically difficult. Contrast injection was performed. Exam performed in department. Left Ventricle Normal LV size. The left ventricular ejection fraction is 65 %. Stage 1 diastolic dysfunction. No regional wall motion abnormalities noted. Right Ventricle Normal RV size. Normal systolic function. Atria Normal left atrium. Normal right atrium. Aortic Valve Trisinus/trileaflet aortic valve. Mild focal aortic valve calcification. Pulmonic Valve The pulmonic valve is not well visualized. Great Vessels Normal aortic root. The pulmonary artery is normal size. Inferior vena cava collapse with respiration. Pericardium/Pleural No pericardial effusion. Medication 22 gauge I.V. with prn adaptor inserted into right arm. Diluted definity 1.5ml given slow IV push to enhance endocardial definition. MMode/2D Measurements & Calculations LVIDd: 3.8 cm IVSd: 1.1 cm LVOT diam: 2.0 cm LVIDs: 2.5 cm LVPWd: 1.4 cm LVOT area: 3.0 cm2 RVDd: 3.3 cm FS: 36.3 % Ao root diam: 2.7 cm LAV(MOD-bp): 41.1 ml LVAd ap4: 26.2 cm2 LAV(MOD-bp) Indexed: 22.0 ml/m2 LVLd ap4: 7.2 cm LAV(MOD-sp2): 40.1 ml EDV(MOD-sp4): 76.7 ml LAV(MOD-sp4): 37.6 ml EDV(sp4-el): 80.7 ml LVAs ap4: 14.2 cm2 LVLs ap4: 5.9 cm ESV(MOD-sp4): 29.4 ml ESV(sp4-el): 29.2 ml EF(MOD-sp4): 61.7 % EF(sp4-el): 63.8 % SV(MOD-sp4): 47.3 ml SV(sp4-el): 51.5 ml LA A4 area: 14.4 cm2 SI(MOD-sp4): 25.4 ml/m2 LA dimension(2D): 4.3 cm RA A4 area: 11.0 cm2 TAPSE: 1.2 cm Time Measurements MV dec time: 0.27 sec Doppler Measurements & Calculations MV E max tommy: 52.4 cm/sec Lat Peak E' Tommy: 6.0 cm/sec Med Peak E' Tommy: 4.4 cm/sec MV A max tommy: 95.9 cm/sec E/E' lat: 8.8 E/E' med: 11.8 MV E/A: 0.55 MV V2 max: 106.1 cm/sec MV P1/2t max tommy: 66.3 cm/sec Ao V2 max: 178.9 cm/sec MV max P.5 mmHg MV P1/2t: 105.4 msec Ao max P.8 mmHg MV V2 mean: 56.2 cm/sec Ao V2 mean: 114.9 cm/sec MV mean P.5 mmHg MV dec slope: 184.3 cm/sec2 Ao mean P.3 mmHg MV V2 VTI: 26.6 cm MVA(P1/2t): 2.1 cm2 Ao V2 VTI: 36.1 cm AV (velocity ratio): 0.72 MVA(VTI): 3.0 cm2 ENRICO(I,D): 2.2 cm2 ENRICO(V,D): 2.0 cm2 LV V1 max: 114.9 cm/sec SV(LVOT): 79.3 ml PA V2 max: 74.8 cm/sec LV V1 max P.3 mmHg LV V1 mean P.7 mmHg LV V1 mean: 78.1 cm/sec LV V1 VTI: 26.0 cm ECHO/Echo Complete W/ Contrast Interpretation Summary The left ventricular ejection fraction is 65 %. Normal LV size. Stage 1 diastolic dysfunction. Mild focal aortic valve calcification. Contrast injection was performed. Ordering Physician: Paty Figueroa Referring Physician: Paty Figueroa Performed By: Guy Farris RCS
== END | disposition home or self-care (01) ==
LOC: CVS 09:50
PROVIDERS: PCP Internal Medicine; Referring Provider Physician Assistant Medical; Visit Provider Physician Assistant Medical
DX: I35.0 Nonrheumatic aortic (valve) stenosis (principal)
CPT/HCPCS: 93306; Q9957; A4216; C8929